=== PATIENT | male | born 1955 | race Caucasian/White ===

== ENCOUNTER 2017-11-22 12:17 | Inpatient (IN) | payer OTHER ==
[~2017-11-22] VITALS: Ht 165 cm; Wt 66.8 kg
--- NOTE | 2017-11-22 12:41 | ED DYSPNEA/ASTHMA COMPLAINT ---
See Addendum History of Present Illness General Chief Complaint: Dyspnea (COPD, CHF, Other) Stated Complaint: SOB Source: patient, family Exam Limitations: language barrier Vital Signs & Intake/Output Vital Signs & Intake/Output Vital Signs Date Time Temp Pulse Resp B/P B/P Pulse O2 O2 Flow FiO2 Mean Ox Delivery Rate 11/22 1446 98.0 102 20 147/90 95 Room Air 11/22 1420 98 11/22 1234 98.7 116 20 163/95 92 Room Air Allergies Coded Allergies: NO KNOWN ALLERGIES (11/25/11) Reconcile Medications Apixaban (Eliquis) 5 MG TABLET 1 TAB PO BID AFIB (Reported) Azithromycin 250 MG TABLET 1 DP PO AD INFECTION (Reported) 2 the first day followed by 1 for days 2-5 Benzonatate 100 MG CAPSULE 1 CAP PO TID PRN COUGH (Reported) Diltiazem HCl (Diltiazem 24HR ER) 180 MG CAP.ER.24H 1 CAP PO DAILY HTN ( Reported) Guaifenesin/Dextromethorphan (Coricidin Hbp Softgel) 200 MG-10 MG CAPSULE COUGH (Reported) Lisinopril 2.5 MG TABLET 1 TAB PO DAILY HTN (Reported) Metoprolol Tartrate (Lopressor) 50 MG TABLET 1 TAB PO BID HTN (Reported) Triage Note: PT C/O SOB AND WEAKNESS X 6 DAYS. WAS SEEN AT [facility] ON WEDNESDAY AND TREATED FOR FLU LIKE SYMPTOMS AND GIVEN ANTIBIOTIC. PT FEELING WORSE. Triage Nurses Notes Reviewed? 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 Harding (Saúl Zuniga) Past History Travel History Traveled to [place] past 21 day No Medical History Any Pertinent Medical History? see below for history Cardiovascular: hypertension, A-FIB Respiratory: COPD Surgical History Surgical History: non-contributory Psychosocial History Who do you live with Family Services at Home None What is your primary language Hebrew Tobacco Use: Never used ETOH Use: occasional use Illicit Drug Use: denies illicit drug use Family History Hx Contributory? No (Saúl Zuniga) Review of Systems Review of Systems Constitutional: Reports: no symptoms. EENTM: Reports: no symptoms. Respiratory: Reports: see HPI, cough, short of breath. Cardiovascular: Reports: see HPI, chest pain. GI: Reports: no symptoms. Genitourinary: Reports: no symptoms. Musculoskeletal: Reports: no symptoms. Skin: Reports: no symptoms. Neurological/Psychological: Reports: no symptoms. Hematologic/Endocrine: Reports: no symptoms. Immunologic/Allergic: Reports: no symptoms. All Other Systems: Reviewed and Negative (Saúl Zuniga) Physical Exam Physical Exam General Appearance: no apparent distress, alert, awake Head: atraumatic Eyes: Bilateral: normal appearance, PERRL, EOMI. Ears, Nose, Throat: normal pharynx, normal ENT inspection Neck: normal inspection Respiratory: no respiratory distress, quiet respiration, decreased breath sounds Cardiovascular: tachycardia, irregularly irregular Peripheral Pulses: 2+ radial (R) Gastrointestinal: normal bowel sounds, soft, non-tender Extremities: normal inspection, normal capillary refill, normal range of motion Neurologic/Psych: no motor/sensory deficits, awake, alert Skin: intact, normal color, warm/dry Core Measures ACS in differential dx? Yes CVA/TIA Diagnosis No Sepsis Present: No Sepsis Focused Exam Completed? No (Saúl Zuniga) Progress Differential Diagnosis: asthma, AMI, bronchitis, costochondritis, CHF, COPD, musculoskeletal pain, pericarditis, pulmonary embolism, pneumonia, pneumothorax, unstable angina Plan of Care: Orders Procedure Date/time Status Heart Healthy Diet 11/22 D Active Admit to inpatient 11/22 1539 Active Vital Signs 11/22 1539 Active Code Status 11/22 1539 Active Telemetry/Rotary Driller Helper 11/22 1306 Active LOWER RESPIRATORY CULTURE 11/22 1306 Active THYROID STIMULATING HORMONE 11/22 1306 Complete TROPONIN LEVEL 11/22 1306 Complete FREE T4 11/22 1306 Complete D-DIMER 11/22 1306 Complete COMPREHENSIVE METABOLIC PANEL 11/22 1306 Complete CBC WITHOUT DIFFERENTIAL 11/22 1306 Complete RAPID VIRAL INFLUENZA A 11/22 1249 Complete EKG 11/22 1218 Active Current Medications Sig/Marixa Start time Last Medication Dose Stop Time Status Admin Azithromycin 500 MG ONCE ONE 11/22 1500 AC (Zithromax) 11/22 1559 Dextrose/Water 250 ML (D5W) Sodium Chloride 500 ML BOLUS ONE 11/22 1500 AC (Normal Saline 0.9%) 11/22 1559 Laboratory Tests 11/22/17 1405: Anion Gap 19 H, Estimated GFR > 60, BUN/Creatinine Ratio 18.8, Glucose 135 H, Calcium 9.9, Total Bilirubin 0.8, AST 53, ALT 38, Alkaline Phosphatase 102, Troponin I < 0.01, Total Protein 8.8 H, Albumin 4.9, Globulin 3.9, Albumin/ Globulin Ratio 1.3, TSH 0.782, Free T4 1.69 11/22/17 1358: CBC w Diff NO MAN DIFF REQ, RBC 4.60 L, MCV 96.5 H, MCH 32.9 H, MCHC 34.1, RDW 12.4, MPV 8.9, Gran % 70.4, Lymphocytes % 10.6 L, Monocytes % 18.6 H, Eosinophils % 0.1, Basophils % 0.3, Absolute Granulocytes 4.5, Absolute Lymphocytes 0.7 L, Absolute Monocytes 1.2 H, Absolute Eosinophils 0, Absolute Basophils 0 11/22/17 1325: D-Dimer High Sensitivty < 200 Microbiology 11/22 1426 NASOPHARYN: Influenza Virus A & B Rapid Smear - COMP 11/22 1306 LOWER RESP: Respiratory Culture - ORD 11/22 1306 LOWER RESP: Gram Stain - ORD Patient on initial examination was resting comfortable at bedside no apparent distress however does have decreased breath sounds patient was administered nebulizer treatment with improvement of aeration and wheezing was more prevalent however upon ambulation down emergency room hallway patient desatted to 87% with mild respiratory distress, another breathing treatment will be ordered Discussed admission with family members and patient who are aware and agree have no questions Diagnostic Imaging: Viewed by Me: Radiology Read. Radiology Impression: SEE COMMENTS Initial ED EKG: AFIB (121 BPM) Comments: PATIENT: SIENA GARCIA PRESENT AGE: 62 PATIENT ACCOUNT NO: [id number] : 55 LOCATION: [facility] ORDERING PHYSICIAN: Saúl JOHNSON SERVICE DATE: 11/22/17 EXAM TYPE: RAD - XRY-CHEST XRAY, TWO VIEWS EXAMINATION: XR CHEST CLINICAL INFORMATION: Shortness of breath wheezing chest pain COMPARISON: Prior chest November 2011 TECHNIQUE: 2 views of the chest were obtained. FINDINGS: Lung volumes increased compatible with emphysema unchanged. Slight blunting of the right costophrenic angle compatible with pleural thickening or small pleural effusion increased compared to prior. The cardiac silhouette mediastinum pulmonary vascularity are normal. Spondylosis of the dorsal spine. IMPRESSION: Increased blunting of the right costophrenic angle age indeterminant this may simple reflect chronic pleural thickening versus small effusion increased compared to prior DICTATED BY: Koffi Mitchell MD DATE/TIME DICTATED:11/22/171457 CLINICAL PROGRAM DIRECTOR:ARIANNE DATE/TIME TRANSCRIBED:11/22/171457 (Saúl Zuniga) Departure Departure Disposition: STILL A PATIENT Condition: Stable Clinical Impression Primary Impression: COPD exacerbation Secondary Impressions: Bronchitis Referrals: Zia Carrasco MD (PCP/Family) Departure Forms: Customer Survey General Discharge Information Admission Note Spoke With: Zia Carrasco MD Documentation of Exam: Documentation of any treatments & extenuating circumstances including Concerns Regarding Discharge (functional status, medication knowledge or non-compliance, living conditions, etc.) that warrant an admission rather than observation: [ Patient requires repeat nebulizers IV steroids pulmonary consultation repeat cardiac enzymes patient has failed outpatient treatments of nebulizers azithromycin and antitussives] (Saúl Zuniga) PA/CORRECTIONAL CASE MANAGER Co-Sign Statement Statement: ED Attending supervision documentation- [X] I saw and evaluated the patient. I have also reviewed all the pertinent lab results and diagnostic results. I agree with the findings and the plan of care as documented in the PA's/CORRECTIONAL CASE MANAGER's documentation. [] I have reviewed the ED Record and agree with the PA's/CORRECTIONAL CASE MANAGER's documentation. [] Additions or exceptions (if any) to the PAs/CORRECTIONAL CASE MANAGER's note and plan are summarized below: [] (Cory Lee DO) Critical Care Note Critical Care Note Critical Care Time: 30-74 min (Saúl Zuniga)
[2017-11-22] MEDS ORDERED: DILTIAZEM 24HR180 MG PO (13:08)
[2017-11-22] MEDS ORDERED: ELIQUIS5 M1 PO (13:08)
[2017-11-22] MEDS ORDERED: LOPRESSOR50 M1 PO (13:09)
[2017-11-22] MEDS ORDERED: BENZONATATE100 M1 PO (13:09)
[2017-11-22] MEDS ORDERED: CORICIDIN HBP1 EAC1 (13:10)
[2017-11-22] MEDS ORDERED: AZITHROMYCIN250 M1 PO (13:10)
[2017-11-22] MEDS ORDERED: LISINOPRIL2.5 M1 PO (13:10)
[2017-11-22 13:57] LABS: ABSOLUTE BASOPHIL COUNT 0 /CUMM (0.0-0.2); ABSOLUTE EOSINOPHIL COUNT 0 /CUMM (0.0-0.7); ABSOLUTE GRANULOCYTE CT 4.5 /CUMM (1.4-6.5); ABSOLUTE LYMPH COUNT 0.7 /CUMM (1.2-3.4); ABSOLUTE MONOCYTE COUNT 1.2 /CUMM (0.10-0.60); BASOPHIL % 0.3 % (0.0-2.0); EOSINOPHIL % 0.1 % (0-5); GRANULOCYTE % 70.4 % (42.2-75.2); HEMATOCRIT 44.4 % (42-52); MEAN CORPUSCULAR HGB 32.9 PG (27.0-31.0); MEAN CORPUSCULAR HGB CONC 34.1 G/DL (33.0-37.0); MEAN CORPUSCULAR VOLUME 96.5 FL (80.0-94.0); MEAN PLATELET VOLUME 8.9 FL (7.4-10.4); PLATELET COUNT 195 /CUMM (130-400); RBC DISTRIBUTION WIDTH 12.4 % (11.5-14.5); WHITE BLOOD CELL COUNT 6.3 /CUMM (4.8-10.8)
--- NOTE | 2017-11-22 15:04 | RADIOLOGY REPORT ---
EXAMINATION: XR CHEST CLINICAL INFORMATION: Shortness of breath wheezing chest pain COMPARISON: Prior chest November 2011 TECHNIQUE: 2 views of the chest were obtained. FINDINGS: Lung volumes increased compatible with emphysema unchanged. Slight blunting of the right costophrenic angle compatible with pleural thickening or small pleural effusion increased compared to prior. The cardiac silhouette mediastinum pulmonary vascularity are normal. Spondylosis of the dorsal spine. IMPRESSION: Increased blunting of the right costophrenic angle age indeterminant this may simple reflect chronic pleural thickening versus small effusion increased compared to prior
--- NOTE | 2017-11-22 15:51 | History & Physical ---
Xiao PLASENCIA,Josey 11/22/17 1551: General Information and HPI MD Statement: I have seen and personally examined SIENA GARCIA and documented this H&P. The patient is a 62 year old M who presented with a patient stated chief complaint of [SOB, cough]. Source of Information: patient, old records History of Present Illness: 62-year-old Slovenian speaking male with past medical history of COPD not on home oxygen, A. fib on Eliquis, hypertension presents to [facility] ED for complaints of one week of productive cough with yellowish sputum, exertional shortness of breath, orthopnea. Patient went to a walk-in clinic and he was prescribed inhalers and azithromycin which she only got 2 doses and he reports not improving on these meds. He also reports 2 episodes of loose diarrhea. Patient denies any fever, chills, chest pain, nausea, vomiting. Patient has recent sick contact (his who has caused but was tested negative for the flu as well as the patient) patient denies any other recent sick contacts or travel Patient follow-up with Dr. Harding as outpatient and his last echo was in July Patient denies any recent changes to his medication and reported being compliant with his home meds Allergies/Medications Allergies: Coded Allergies: NO KNOWN ALLERGIES (11/25/11) Home Med list Apixaban (Eliquis) 5 MG TABLET 1 TAB PO BID AFIB (Reported) Azithromycin 250 MG TABLET 1 DP PO AD INFECTION (Reported) 2 the first day followed by 1 for days 2-5 Benzonatate 100 MG CAPSULE 1 CAP PO TID PRN COUGH (Reported) Diltiazem HCl (Diltiazem 24HR ER) 180 MG CAP.ER.24H 1 CAP PO DAILY HTN ( Reported) Guaifenesin/Dextromethorphan (Coricidin Hbp Softgel) 200 MG-10 MG CAPSULE COUGH (Reported) Lisinopril 2.5 MG TABLET 1 TAB PO DAILY HTN (Reported) Metoprolol Tartrate (Lopressor) 50 MG TABLET 1 TAB PO BID HTN (Reported) Past History Travel History Traveled to [place] past 21 day No Medical History Cardiovascular: hypertension, A-FIB Respiratory: COPD Surgical History Surgical History: non-contributory Past Family/Social History Psychosocial History Services at Home: None ETOH Use: occasional use Illicit Drug Use: denies illicit drug use Review of Systems Review of Systems Constitutional: Reports: malaise, weakness. Denies: chills, diaphoresis, fever. Cardiovascular: Reports: orthopena. Denies: chest pain, edema, peripheral edema. Respiratory: Reports: cough, short of breath, sputum production. GI: Reports: diarrhea. Genitourinary: Denies: no symptoms. Musculoskeletal: Denies: no symptoms. Skin: Denies: no symptoms. Neurological/Psychological: Denies: no symptoms. Exam & Diagnostic Data Last 24 Hrs of Vital Signs/I&O Vital Signs Date Time Temp Pulse Resp B/P B/P Pulse O2 O2 Flow FiO2 Mean Ox Delivery Rate 11/22 1957 98.8 100 20 124/80 95 Room Air 11/22 1923 98.6 90 20 134/84 94 Room Air 11/22 1644 98.5 112 19 142/88 95 Room Air 11/22 1600 98.5 112 20 142/88 95 Room Air 11/22 1446 98.0 102 20 147/90 95 Room Air 11/22 1420 98 11/22 1234 98.7 116 20 163/95 92 Room Air Intake & Output 11/22 1600 11/22 0800 11/22 0000 Intake Total 0 Output Total Balance 0 Intake, Oral 0 Patient 160 lb Weight Weight Reported by Patient Measurement Method Physical Exam General Appearance Alert, Oriented X3, Cooperative, No Acute Distress Skin No Rashes, No Breakdown, No Significant Lesion HEENT Atraumatic, PERRLA, EOMI, Mucous Membr. moist/pink Neck Supple, No JVD Cardiovascular Normal S1, Normal S2 Lungs Clear to Auscultation, Normal Air Movement Abdomen Normal Bowel Sounds, Soft, No Tenderness Neurological Normal Speech Extremities No Clubbing, No Cyanosis, No Edema Vascular Normal Pulses Assessment/Plan Assessment: 62-year-old Slovenian speaking male with past medical history of COPD not on home oxygen, A. fib on Eliquis, hypertension presents to [facility] ED for complaints of one week of productive cough with yellowish sputum, exertional shortness of breath, orthopnea. Patient went to a walk-in clinic and he was prescribed inhalers and azithromycin which she only got 2 doses and he reports not improving on these meds. Last echo performed on the 13 10 showed ejection fraction of 25% which make his symptoms either due to COPD exacerbation versus CHF exacerbation however the patient doesn't have any signs of fluid overload and his BNP was not markedly elevated Labs on admission: WBC 6.3, RBCs 4.6, hemoglobin 15.1, platelet 195, d-dimer < 200, sodium 141, potassium 4.5, carbon dioxide 27, BUN 15, creatinine 0.8, glucose 135, AST 53, AST 38, X-ray:Increased blunting of the right costophrenic angle age indeterminant this may simple reflect chronic pleural thickening versus small effusion increased compared to prior EKG: A. fib, heart rate 120,QTC: Last echocardiography: 2011 showed ejection fraction is less than 25% #COPD exacerbation We'll admit to the GEN med floor IV Solu-Medrol 40 every 8 hours TRC/nebs Oxygen was goal oxygen saturation above 92 Mucinex IV azithromycin #History of A. fib/ heart failure with reduced ejection fraction/hypertension We'll obtain cardiology consult Echocardiogram Follow-up on EKG and troponin to rule out ACS Continue home meds including metoprolol, diltiazem, Eliquis, lisinopril Patient is full code DVT prophylaxis with Eliquis Heart healthy diet Core Measures/Misc (07/11) Acute Coronary Syndrome ACS Diagnosis: No Congestive Heart Failure Congestive Heart Failure Diagnosis No Last Known EF % 25 Cerebrovascular Accident CVA/TIA Diagnosis: No VTE (View Protocol) VTE Risk Factors Age>40 No Mechanical VTE Prophylaxis d/t N/A MechProphylax Ordered No VTE Pharm Prophylaxis d/t NA PharmProphylax ordered Sepsis (View protocol) Sepsis Present: No Blu Bergman 11/22/171947: Assessment/Plan As Ranked By This Provider Problem List: 1. COPD exacerbation Resident Review Statement Resident Statement: examined this patient, discussed with dietetic intern, agreed with dietetic intern, discussed with family, reviewed EMR data (avail), discussed with nursing , discussed with case mgmt, reviewed images, amended to note Other Findings: Patient is a 62-year-old male with medical history of COPD NOT ON HOME O2 and atrial fibrillation ON eliquis, HTN. She presented to the emergency department with one-week history of productive cough and shortness of breath. His daughter stated that he was given a prescription one week ago of azithromycin and Tessalon Perles, inhaler with no relief of symptoms, patient stated he take only 1 doses of his azithromycin. Patient is still complaining of white productive cough shortness of breath dyspnea on exertion. Also he reports some orthopnea, he stated that he increase the number of pill use from 1-2 due to the difficulty of breathing. 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 Patient denies any lower extremity swelling. In ED patient received IV Solu-Medrol, IV azithromycin and nbs. Patient reports his shortness of breathing improve, and he is currently on room air with easy saturation more than 92%. His pro-B peptide of 900. Problem list: -COPD exacerbation -Questionable CHF decompensation -Atrial fibrillation on a Eliquis Plan: -Admit patient to medicine floor -Vitals every shift -IV Solu-Medrol 40 mg every 8 -IV azithromycin -Start the patient on Symbicort, continue albuterol inhaler -TRC nebs as needed, Mucinex twice -Sputum culture, Legionella strep urine antigen -1 set for troponin and EKG -Obtain echocardiogram for further assessment, cardiac consultation in a.m. -Accu-Chek -Continue his home medication -Heart healthy diet -Pain pathway -DVT prophylaxis on Eliquis -Full code
[2017-11-22 16:00] VITALS: BP 142/88
--- NOTE | 2017-11-22 19:20 | Admission Certification ---
Admission Certification Certification Statement - As attending physician, I certify that at the time of - admission, based on clinical presentation, severity of - symptoms, need for further diagnostic testing and - therapeutic interventions, and risk of adverse outcomes - without in-hospital treatment, in my clinical assessment, - this patient requires an acute hospital stay for a minimum - of two nights or longer. I have also considered psychsocial - factors such as support system, advanced age, financial - issues, cognitive issues, and failed out-patient treatments, - past re-admission history, safety of patient, and lack of - compliance as applicable. Specific rationale supporting this admission is: Exacerbation of COPD not responding to treatment given in the clinic
[2017-11-22 19:23] VITALS: BP 134/84
--- NOTE | 2017-11-22 19:26 | PN- Att Addend ---
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 having SOB and wheezes for several days went to clinic wednesday given a Zpak and Tessalon pearls not better comes to the Er will stay treat as exacerbation, have Dr Harding check for orthopnea and small pleural effussion. Laboratory Tests 11/22/17 1556: Lad-Q-Arqptjeovpx Pept Cancelled 11/22/17 1405: Anion Gap 19 H, Estimated GFR > 60, BUN/Creatinine Ratio 18.8, Glucose 135 H, Calcium 9.9, Total Bilirubin 0.8, AST 53, ALT 38, Alkaline Phosphatase 102, Troponin I < 0.01, Bph-Q-Yprkmlrgnew Pept 923 H, Total Protein 8.8 H, Albumin 4.9, Globulin 3.9, Albumin/Globulin Ratio 1.3, TSH 0.782, Free T4 1.69 11/22/17 1358: CBC w Diff NO MAN DIFF REQ, RBC 4.60 L, MCV 96.5 H, MCH 32.9 H, MCHC 34.1, RDW 12.4, MPV 8.9, Gran % 70.4, Lymphocytes % 10.6 L, Monocytes % 18.6 H, Eosinophils % 0.1, Basophils % 0.3, Absolute Granulocytes 4.5, Absolute Lymphocytes 0.7 L, Absolute Monocytes 1.2 H, Absolute Eosinophils 0, Absolute Basophils 0 11/22/17 1325: D-Dimer High Sensitivty < 200 Microbiology 11/22 1426 NASOPHARYN: Influenza Virus A & B Rapid Smear - COMP Vital Signs Date Time Temp Pulse Resp B/P B/P Pulse O2 O2 Flow FiO2 Mean Ox Delivery Rate 11/22 1923 98.6 90 20 134/84 94 Room Air 11/22 1644 98.5 112 19 142/88 95 Room Air 11/22 1600 98.5 112 20 142/88 95 Room Air 11/22 1446 98.0 102 20 147/90 95 Room Air 11/22 1420 98 11/22 1234 98.7 116 20 163/95 92 Room Air
[2017-11-22 19:58] VITALS: BP 124/80
[2017-11-23] VITALS: BP 120/76
[2017-11-23 06:51] VITALS: BP 127/90
--- NOTE | 2017-11-23 09:49 | PN- Att Addend ---
Attending Addendum Attending Brief Note Patient in bed still having shortness of breath with minimal exertion stated after he came back from the bathroom is very short of breath His vital signs are stable has no fever, no major changes on physical area to continue present treatments 24 TOTALS 11/23 0000 11/22 0000 Intake Total 600 Output Total Balance 600 Intake, Oral 600 Patient 147 lb Weight Weight Bed scale Measurement Method Current Medications Sig/Marixa Start time Last Medication Dose Route Stop Time Status Admin Acetaminophen 650 MG Q6P PRN 11/22 1715 AC PO Albuterol Sulfate 3 ML BID 11/22 2200 AC 11/22 INH 2115 Albuterol Sulfate 3 ML ONCE ONE 11/22 1430 DC 11/22 INH 11/22 1431 1458 Albuterol Sulfate 3 ML ONCE ONE 11/22 1430 DC 11/22 INH 11/22 1431 1458 Albuterol Sulfate 3 ML ONCE ONE 11/22 1315 DC 11/22 INH 11/22 1316 1328 Apixaban 5 MG BID 11/22 2200 AC 11/23 PO 0919 Azithromycin 500 MG DAILY 11/23 1000 AC Dextrose/Water 250 ML IV Azithromycin 500 MG ONCE ONE 11/22 1500 DC 11/22 Dextrose/Water 250 ML IV 11/22 1559 1548 Benzonatate 100 MG TID 11/22 1709 AC 11/23 PO 0919 Budesonide/ 2 PUF BID 11/22 2199 AC 11/23 Formoterol Fumarate INH 0920 Diltiazem HCl 180 MG DAILY 11/23 1000 AC 11/23 PO 0919 Guaifenesin 600 MG Q12 11/22 2200 AC 11/23 PO 0919 Guaifenesin 600 MG ONCE ONE 11/22 1315 DC 11/22 PO 11/22 1316 1547 Hydrocodone Bitart/ 1 TAB Q6P PRN 11/22 1715 AC Acetaminophen PO Ipratropium [place] 2.5 ML ONCE ONE 11/22 1315 DC 11/22 INH 11/22 1316 1328 Lisinopril 2.5 MG DAILY 11/23 1000 AC 11/23 PO 0919 Methylprednisolone 40 MG Q8 11/22 2200 AC 11/23 IV 0606 Methylprednisolone 0 .STK-MED ONE 11/22 1539 DC .ROUTE Methylprednisolone 125 MG ONCE ONE 11/22 1315 DC 11/22 IV 11/22 1316 1547 Metoprolol Tartrate 50 MG BID 11/22 2199 AC 11/23 PO 0919 Oxycodone HCl 5 MG Q6P PRN 11/22 1715 AC PO Sodium Chloride 500 ML BOLUS ONE 11/22 1500 DC 11/22 IV 11/22 1559 1548 Laboratory Tests 11/22/17 2150: Troponin I < 0.01 11/22/17 1556: Zgk-H-Ysxswwlzxnd Pept Cancelled 11/22/17 1405: Anion Gap 19 H, Estimated GFR > 60, BUN/Creatinine Ratio 18.8, Glucose 135 H, Calcium 9.9, Total Bilirubin 0.8, AST 53, ALT 38, Alkaline Phosphatase 102, Troponin I < 0.01, Ijx-K-Wilkeevexpw Pept 923 H, Total Protein 8.8 H, Albumin 4.9, Globulin 3.9, Albumin/Globulin Ratio 1.3, TSH 0.782, Free T4 1.69 11/22/17 1358: CBC w Diff NO MAN DIFF REQ, RBC 4.60 L, MCV 96.5 H, MCH 32.9 H, MCHC 34.1, RDW 12.4, MPV 8.9, Gran % 70.4, Lymphocytes % 10.6 L, Monocytes % 18.6 H, Eosinophils % 0.1, Basophils % 0.3, Absolute Granulocytes 4.5, Absolute Lymphocytes 0.7 L, Absolute Monocytes 1.2 H, Absolute Eosinophils 0, Absolute Basophils 0 11/22/17 1325: D-Dimer High Sensitivty < 200 Microbiology 11/230 URINE ROUT: Legionella Antigen - COMP 11/23 409 URINE ROUT: Streptococcus pneumoniae Antigen (M - COMP 11/22 1426 NASOPHARYN: Influenza Virus A & B Rapid Smear - COMP Vital Signs Date Time Temp Pulse Resp B/P B/P Pulse O2 O2 Flow FiO2 Mean Ox Delivery Rate 11/23 09 98.2 98 20 127/90 11/23 0919 98.2 98 20 127/90 11/23 0800 Nasal 1.0L Cannula 11/23 0651 98.2 98 20 127/90 91 Nasal 1.0L Cannula 11/23 0000 93 Nasal 1.0L Cannula 11/23 0000 97.9 80 20 120/76 93 Nasal 1.0L Cannula 11/22 2202 100 20 124/80 11/22 2125 Room Air 11/22 1957 98.8 100 20 124/80 95 Room Air 11/22 1923 98.6 90 20 134/84 94 Room Air 11/22 1644 98.5 112 19 142/88 95 Room Air 11/22 1600 98.5 112 20 142/88 95 Room Air 11/22 1446 98.0 102 20 147/90 95 Room Air 11/22 1420 98 11/22 1234 98.7 116 20 163/95 92 Room Air
--- NOTE | 2017-11-23 11:09 | PN- Housestaff ---
Subjective Follow-up For: Dyspnea COPD Subjective: nonproductive cough and exertional dyspnea Review of Systems Constitutional: Reports: see HPI. Objective Last 24 Hrs of Vital Signs/I&O Vital Signs Date Time Temp Pulse Resp B/P B/P Pulse O2 O2 Flow FiO2 Mean Ox Delivery Rate 11/23 1334 93 Nasal 1.0L Cannula 11/23 0919 98.2 98 20 127/90 11/23 0919 98.2 98 20 127/90 11/23 0800 Nasal 1.0L Cannula 11/23 0651 98.2 98 20 127/90 91 Nasal 1.0L Cannula 11/23 0000 93 Nasal 1.0L Cannula 11/23 0000 97.9 80 20 120/76 93 Nasal 1.0L Cannula 11/22 2203 100 20 124/80 11/22 2126 Room Air 11/22 1958 98.8 100 20 124/80 95 Room Air 11/22 1923 98.6 90 20 134/84 94 Room Air 11/22 1644 98.5 112 19 142/88 95 Room Air 11/22 1600 98.5 112 20 142/88 95 Room Air 11/22 1446 98.0 102 20 147/90 95 Room Air 11/22 1420 98 Intake & Output 11/23 1600 11/23 0800 11/23 0000 Intake Total 600 600 Output Total 550 Balance 50 600 Intake, Oral 600 600 Output, Urine 550 Patient 66.763 kg Weight Weight Bed scale Measurement Method Physical Exam General Appearance: Alert, Oriented X3, Cooperative, No Acute Distress Cardiovascular: irregular Lungs: diminished bibasilar Abdomen: Normal Bowel Sounds, Soft, No Tenderness, No Masses Extremities: No Clubbing, No Cyanosis, No Edema, Normal Pulses Assessment/Plan Assessment: 62 year old [place] speaking male with PMH of COPD not on home oxygen, atrial fibrillation on Eliquis, HTN presents with productive cough and exertional dyspnea. Exertional dyspnea secondary to CHF vs COPD exacerbation althought no overt signs of fluid overload and his BNP was not markedly elevated COPD exacerbation: Former smoker IV azithromycin Continue solumedrol 40mg IV q8h TRC evaluation and nebulized albuterol Titrate supplemental oxygen to an SpO2 > 92% Mucinex and tessalon pearles for cough and congestion X-ray: Increased blunting of the right costophrenic angle age chronic pleural thickening versus small effusion HFrEF: Repeat echocardiogram Cardiology consultation LVEF 25% on last echocardiogram 2012 Check EKG/troponins to rule out myocardial ischemia as cause of dyspnea Atrial fibrillation: Continue anticoagulation with eliquis Continue rate control with metoprolol and cardizem HTN: Continue metoprolol, cardizem, lisinopril Heart healthy diet DVT ppx: on Eliquis Full code Problem List: 1. ATRIAL FIBRILATION 2. COPD exacerbation 3. Bronchitis Pain Ratin Pain Location: n/a Pain Goal: Pain 4 or less Pain Plan: prn Tomorrow's Labs & Rationales: cbc, bep
[2017-11-23 14:23] VITALS: BP 120/60
[2017-11-23 20:05] LABS: ABSOLUTE BASOPHIL COUNT 0 /CUMM (0.0-0.2); ABSOLUTE EOSINOPHIL COUNT 0 /CUMM (0.0-0.7); ABSOLUTE GRANULOCYTE CT 15.2 /CUMM (1.4-6.5); ABSOLUTE LYMPH COUNT 0.6 /CUMM (1.2-3.4); ABSOLUTE MONOCYTE COUNT 0.9 /CUMM (0.10-0.60); BASOPHIL % 0 % (0.0-2.0); EOSINOPHIL % 0 % (0-5); HEMATOCRIT 46.9 % (42-52); MEAN CORPUSCULAR HGB 32.9 PG (27.0-31.0); MEAN CORPUSCULAR HGB CONC 33.2 G/DL (33.0-37.0); MEAN CORPUSCULAR VOLUME 99.3 FL (80.0-94.0); MEAN PLATELET VOLUME 9.7 FL (7.4-10.4); PLATELET COUNT 226 /CUMM (130-400); RBC DISTRIBUTION WIDTH 12.9 % (11.5-14.5); RED BLOOD CELL CT 4.72 /CUMM (4.70-6.10)
[2017-11-23 20:10] LABS: WHITE BLOOD CELL COUNT 16.7 /CUMM (4.8-10.8)
[2017-11-23 20:23] LABS: GRANULOCYTE % 90.7 % (42.2-75.2)
[2017-11-23 22:56] VITALS: BP 142/70
[2017-11-24 06:57] VITALS: BP 122/90
--- NOTE | 2017-11-24 07:10 | PN- Housestaff ---
Subjective Follow-up For: exertional dyspnea cough bronchitis COPD exacerbation Subjective: less chest tightness and dyspnea is relatively improved was able to walk to the bathroom this morning without significant dyspnea Review of Systems Constitutional: Reports: see HPI. Objective Last 24 Hrs of Vital Signs/I&O Vital Signs Date Time Temp Pulse Resp B/P B/P Pulse O2 O2 Flow FiO2 Mean Ox Delivery Rate 11/24 0919 94 Room Air Room Air 11/24 0735 97.5 80 20 122/90 11/24 0734 97.5 80 20 122/90 11/24 0657 97.5 80 20 122/90 91 Room Air 11/24 0000 Nasal 1.0L Cannula 11/23 2256 98.3 80 20 142/70 91 Nasal Cannula 11/23 2139 98.1 70 120/60 11/23 1953 Nasal 1.0L Cannula 11/23 1423 98.1 70 20 120/60 98 Room Air 11/23 1334 93 Nasal 1.0L Cannula Physical Exam General Appearance: Alert, Oriented X3, Cooperative, No Acute Distress Cardiovascular: Regular Rate, Normal S1, Normal S2, No Murmurs Lungs: significantly reduced air movement globally Abdomen: Normal Bowel Sounds, Soft, No Tenderness, No Masses Extremities: No Clubbing, No Cyanosis, No Edema, Normal Pulses Current Medications: Current Medications Sig/Marixa Start time Last Medication Dose Route Stop Time Status Admin Acetaminophen 650 MG Q6P PRN 11/22 1715 AC PO Albuterol Sulfate 3 ML BID 11/220 AC 11/24 INH 0917 Apixaban 5 MG BID 11/22 2200 AC 11/24 PO 0735 Azithromycin 500 MG DAILY 11/25 1000 AC PO Azithromycin 500 MG DAILY 11/24 1000 DC 11/24 Sodium Chloride 250 ML IV 0734 Azithromycin 500 MG DAILY 11/23 1000 DC 11/23 Dextrose/Water 250 ML IV 1200 Benzonatate 100 MG TID 11/22 1709 AC 11/24 PO 0735 Budesonide/ 2 PUF BID 11/22 2200 AC 11/24 Formoterol Fumarate INH 0734 Diltiazem HCl 180 MG DAILY 11/23 1000 AC 11/24 PO 0734 Guaifenesin 600 MG Q12 11/22 2200 AC 11/24 PO 0735 Hydrocodone Bitart/ 1 TAB Q6P PRN 11/22 1715 AC Acetaminophen PO Lisinopril 2.5 MG DAILY 11/23 1000 AC 11/24 PO 0735 Methylprednisolone 40 MG Q12 11/24 2199 AC IV 11/24 2300 Methylprednisolone 40 MG Q8 11/22 2199 DC 11/24 IV 0521 Metoprolol Tartrate 50 MG BID 11/22 2199 AC 11/24 PO 0734 Oxycodone HCl 5 MG Q6P PRN 11/22 1715 AC PO Prednisone 50 MG DAILY 11/25 1000 AC PO Last 24 Hrs of Lab/Chan Results Last 24 Hrs of Labs/Mics: Laboratory Tests 11/23/17 1855: Anion Gap 20 H, Estimated GFR > 60, BUN/Creatinine Ratio 16.3, CBC w Diff NO MAN DIFF REQ, RBC 4.72, MCV 99.3 H, MCH 32.9 H, MCHC 33.2, RDW 12.9, MPV 9.7, Gran % 90.7 H, Lymphocytes % 3.7 L, Monocytes % 5.6, Eosinophils % 0, Basophils % 0, Absolute Granulocytes 15.2 H, Absolute Lymphocytes 0.6 L, Absolute Monocytes 0.9 H, Absolute Eosinophils 0, Absolute Basophils 0 Assessment/Plan Assessment: 62 year old Kitt[place] speaking male with PMH of COPD not on home oxygen, atrial fibrillation on Eliquis, HTN presents with productive cough and exertional dyspnea. Exertional dyspnea secondary to CHF vs COPD exacerbation althought no overt signs of fluid overload and his BNP was not markedly elevated COPD exacerbation: Former smoker IV azithromycin, plan to change to PO tomorrow Continue solumedrol 40mg IV q12h, convert to PO prednisone tomorrow TRC evaluation and nebulized albuterol Titrate off supplemental oxygen, maintain an SpO2 > 92% Mucinex and tessalon pearles for cough and congestion X-ray: Increased blunting of the right costophrenic angle age chronic pleural thickening versus small effusion HFrEF: Repeat echocardiogram Cardiology consultation LVEF 25% on last echocardiogram 2012 Troponins negative for myocardial ischemia as cause of dyspnea Atrial fibrillation: Continue anticoagulation with eliquis Continue rate control with metoprolol and cardizem HTN: Continue metoprolol, cardizem, lisinopril Heart healthy diet DVT ppx: on Eliquis Full code Problem List: 1. ATRIAL FIBRILATION 2. COPD exacerbation 3. Bronchitis Pain Ratin Pain Location: n/a Pain Goal: Pain 4 or less Pain Plan: prn Tomorrow's Labs & Rationales: none
--- NOTE | 2017-11-24 09:48 | PN- Att Addend ---
Attending Addendum Attending Brief Note Patient looking and feeling better today, breathing is improved and was able to go to the bathroom with no distress. Vital signs are stable no fever his O2 saturations are acceptable. His air entry is a little improved will continue with the tapering steroids, switched to by mouth antibiotics, and if stable may be able to go home tomorrow. Intake & Output 11/24 1600 11/24 0400 11/23 1600 11/23 0400 11/22 1600 11/22 0400 Intake Total 1400 600 0 Output Total 950 Balance 450 600 0 Intake, Oral 1400 600 0 Output, Urine 950 Patient 147 lb 160 lb Weight Weight Bed scale Reported by Patient Measurement Method Current Medications Sig/Marixa Start time Last Medication Dose Route Stop Time Status Admin Acetaminophen 650 MG Q6P PRN 11/22 171 AC PO Albuterol Sulfate 3 ML BID 11/22 2199 AC 11/24 INH 0917 Apixaban 5 MG BID 11/22 220 AC 11/24 PO 0735 Azithromycin 500 MG DAILY 11/25 1000 AC PO Azithromycin 500 MG DAILY 11/24 1000 DC 11/24 Sodium Chloride 250 ML IV 0734 Azithromycin 500 MG DAILY 11/23 1000 DC 11/23 Dextrose/Water 250 ML IV 1200 Benzonatate 100 MG TID 11/22 1709 AC 11/24 PO 0735 Budesonide/ 2 PUF BID 11/22 220 AC 11/24 Formoterol Fumarate INH 0734 Diltiazem HCl 180 MG DAILY 11/23 1000 AC 11/24 PO 0734 Guaifenesin 600 MG Q12 11/22 2200 AC 11/24 PO 0735 Hydrocodone Bitart/ 1 TAB Q6P PRN 11/22 171 AC Acetaminophen PO Lisinopril 2.5 MG DAILY 11/23 1000 AC 11/24 PO 0735 Methylprednisolone 40 MG Q12 11/24 2199 AC IV 11/24 2300 Methylprednisolone 40 MG Q8 11/22 220 DC 11/24 IV 0521 Metoprolol Tartrate 50 MG BID 11/22 220 AC 11/24 PO 0734 Oxycodone HCl 5 MG Q6P PRN 11/22 1715 AC PO Prednisone 50 MG DAILY 11/25 1000 AC PO Laboratory Tests 11/23/17 1855: Anion Gap 20 H, Estimated GFR > 60, BUN/Creatinine Ratio 16.3, CBC w Diff NO MAN DIFF REQ, RBC 4.72, MCV 99.3 H, MCH 32.9 H, MCHC 33.2, RDW 12.9, MPV 9.7, Gran % 90.7 H, Lymphocytes % 3.7 L, Monocytes % 5.6, Eosinophils % 0, Basophils % 0, Absolute Granulocytes 15.2 H, Absolute Lymphocytes 0.6 L, Absolute Monocytes 0.9 H, Absolute Eosinophils 0, Absolute Basophils 0 11/22/17 2150: Troponin I < 0.01 11/22/17 1556: [id number]-[id number] Pept Cancelled 11/22/17 1405: Anion Gap 19 H, Estimated GFR > 60, BUN/Creatinine Ratio 18.8, Glucose 135 H, Calcium 9.9, Total Bilirubin 0.8, AST 53, ALT 38, Alkaline Phosphatase 102, Troponin I < 0.01, Xja-T-Fvdljicnmfc Pept 923 H, Total Protein 8.8 H, Albumin 4.9, Globulin 3.9, Albumin/Globulin Ratio 1.3, TSH 0.782, Free T4 1.69 11/22/17 1358: CBC w Diff NO MAN DIFF REQ, RBC 4.60 L, MCV 96.5 H, MCH 32.9 H, MCHC 34.1, RDW 12.4, MPV 8.9, Gran % 70.4, Lymphocytes % 10.6 L, Monocytes % 18.6 H, Eosinophils % 0.1, Basophils % 0.3, Absolute Granulocytes 4.5, Absolute Lymphocytes 0.7 L, Absolute Monocytes 1.2 H, Absolute Eosinophils 0, Absolute Basophils 0 11/22/17 1325: D-Dimer High Sensitivty < 200 Microbiology 11/23 409 URINE ROUT: Legionella Antigen - COMP 11/23 409 URINE ROUT: Streptococcus pneumoniae Antigen (M - COMP 11/22 142 NASOPHARYN: Influenza Virus A & B Rapid Smear - COMP 11/22 1306 LOWER RESP: Respiratory Culture - CAN Cancelled: SPECIMEN NOT RECEIVED IN LABORATORY 11/22 130 LOWER RESP: Gram Stain - CAN Cancelled: SPECIMEN NOT RECEIVED IN LABORATORY Microbiology 11/23 409 URINE ROUT: Legionella Antigen - COMP 11/23 409 URINE ROUT: Streptococcus pneumoniae Antigen (M - COMP 11/22 1426 NASOPHARYN: Influenza Virus A & B Rapid Smear - COMP 11/22 1306 LOWER RESP: Respiratory Culture - CAN Cancelled: SPECIMEN NOT RECEIVED IN LABORATORY 11/22 1306 LOWER RESP: Gram Stain - CAN Cancelled: SPECIMEN NOT RECEIVED IN LABORATORY Vital Signs Date Time Temp Pulse Resp B/P B/P Pulse O2 O2 Flow FiO2 Mean Ox Delivery Rate 11/24 0919 94 Room Air Room Air 11/24 0735 97.5 80 20 122/90 11/24 0734 97.5 80 20 122/90 11/24 0657 97.5 80 20 122/90 91 Room Air 11/24 0000 Nasal 1.0L Cannula 11/23 2256 98.3 80 20 142/70 91 Nasal Cannula 11/23 2139 98.1 70 120/60 11/23 1953 Nasal 1.0L Cannula 11/23 1423 98.1 70 20 120/60 98 Room Air 11/23 1334 93 Nasal 1.0L Cannula
--- NOTE | 2017-11-24 10:14 | Cons- Cardiology ---
General Information and HPI Consulting Request Date of Consult: 11/24/17 Requested By: Zia Carrasco MD Reason for Consult: Atrial fibrillation with a rapid ventricular response. Source of Information: patient, old records Exam Limitations: language barrier History of Present Illness: Mr. Juan Antonio Reilly is a 62-year-old male of [place] descent with a long-standing history of tobacco use (discontinued ~2009), COPD, hypertension, nonischemic cardiomyopathy with systolic heart failure, and atrial fibrillation on the factor Xa inhibitor Eliquis (apixaban) for anticoagulation and beta blockers/non-dihydropyridine calcium channel antagonist therapy for rate control who presented to the ED on Wednesday (11/22/2017) with a one-week history of cough productive of yellowish sputum, exertional shortness of breath, orthopnea, diarrhea, and fatigue despite outpatient antimicrobial therapy (azithromycin), inhalers, etc. prescribed by a walk-in clinic. His last echocardiogram was performed on 07/28/2016 and revealed a normal-sized left ventricle with borderline concentric left ventricular hypertrophy and moderately reduced systolic function with EF 35-40%, moderately dilated right ventricle, moderately dilated right and markedly dilated left atria, no pericardial effusion, mild aortic root dilatation (3.8 cm) and Doppler portion that revealed trace aortic, moderate mitral, trace tricuspid regurgitation and an estimated RV systolic pressure of 34 mmHg. His last stress test was performed on 11/27/2011 and revealed no clinical, electrocardiographic, or nuclear evidence of ischemia. Allergies/Medications Allergies: Coded Allergies: NO KNOWN ALLERGIES (11/25/11) Home Med List: Apixaban (Eliquis) 5 MG TABLET 1 TAB PO BID AFIB (Reported) Azithromycin 250 MG TABLET 1 DP PO AD INFECTION (Reported) 2 the first day followed by 1 for days 2-5 Benzonatate 100 MG CAPSULE 1 CAP PO TID PRN COUGH (Reported) Diltiazem HCl (Diltiazem 24HR ER) 180 MG CAP.ER.24H 1 CAP PO DAILY HTN ( Reported) Guaifenesin/Dextromethorphan (Coricidin Hbp Softgel) 200 MG-10 MG CAPSULE COUGH (Reported) Lisinopril 2.5 MG TABLET 1 TAB PO DAILY HTN (Reported) Metoprolol Tartrate (Lopressor) 50 MG TABLET 1 TAB PO BID HTN (Reported) Past History Travel History Traveled to [place] past 21 day No Medical History Blood Transfusion Hx: No Neurological: NONE EENT: NONE Cardiovascular: hypertension, A-FIB Respiratory: COPD Gastrointestinal: NONE Hepatic: NONE Renal: NONE Musculoskeletal: NONE Psychiatric: NONE Endocrine: NONE Blood Disorders: NONE Cancer(s): NONE ECONOMICS LECTURER/Reproductive: NONE Surgical History Surgical History: non-contributory Psychosocial History Where Do You Live? Home Services at Home: None Smoking Status: Former Smoker ETOH Use: occasional use Illicit Drug Use: denies illicit drug use Exam & Diagnostic Data Vital Signs and I&O Vital Signs Date Time Temp Pulse Resp B/P B/P Pulse O2 O2 Flow FiO2 Mean Ox Delivery Rate 11/24 0919 94 Room Air Room Air 11/24 0735 97.5 80 20 122/90 11/24 0734 97.5 80 20 122/90 11/24 0657 97.5 80 20 12290 91 Room Air 11/24 0000 Nasal 1.0L Cannula 11/23 2256 98.3 80 20 142/70 91 Nasal Cannula 11/23 2139 98.1 70 120/60 11/23 1953 Nasal 1.0L Cannula 11/23 1423 98.1 70 20 120/60 98 Room Air 11/23 1334 93 Nasal 1.0L Cannula Intake & Output 11/24 1600 11/24 0800 11/24 0000 11/23 1600 11/23 0800 11/23 0000 Intake Total 800 600 600 Output Total 400 550 Balance 400 50 600 Intake, Oral 800 600 600 Output, Urine 400 550 Patient 147 lb Weight Weight Bed scale Measurement Method Labs/Chan Results: Laboratory Tests 11/23 11/22 11/22 1855 2150 1556 Chemistry Sodium (137 - 145 mmol/L) 139 Potassium (3.5 - 5.1 mmol/L) 4.5 Chloride (98 - 107 mmol/L) 93 L Carbon Dioxide (22 - 30 mmol/L) 26 Anion Gap (5 - 16) 20 H BUN (9 - 20 mg/dL) 13 Creatinine (0.7 - 1.2 mg/dL) 0.8 Estimated GFR (>60 ml/min) > 60 BUN/Creatinine Ratio (7 - 25 %) 16.3 Troponin I (<0.11 ng/ml) < 0.01 Ayp-E-Ebvewjnuwdv Pept Cancelled Hematology CBC w Diff NO MAN DIFF REQ WBC (4.8 - 10.8 /CUMM) 16.7 H RBC (4.70 - 6.10 /CUMM) 4.72 Hgb (14.0 - 18.0 G/DL) 15.6 Hct (42 - 52 %) 46.9 MCV (80.0 - 94.0 FL) 99.3 H MCH (27.0 - 31.0 PG) 32.9 H MCHC (33.0 - 37.0 G/DL) 33.2 RDW (11.5 - 14.5 %) 12.9 Plt Count (130 - 400 /CUMM) 226 MPV (7.4 - 10.4 FL) 9.7 Gran % (42.2 - 75.2 %) 90.7 H Lymphocytes % (20.5 - 51.1 %) 3.7 L Monocytes % (1.7 - 9.3 %) 5.6 Eosinophils % (0 - 5 %) 0 Basophils % (0.0 - 2.0 %) 0 Absolute Granulocytes (1.4 - 6.5 /CUMM) 15.2 H Absolute Lymphocytes (1.2 - 3.4 /CUMM) 0.6 L Absolute Monocytes (0.10 - 0.60 /CUMM) 0.9 H Absolute Eosinophils (0.0 - 0.7 /CUMM) 0 Absolute Basophils (0.0 - 0.2 /CUMM) 0 11/22 11/22 11/22 1405 1358 1325 Chemistry Sodium (137 - 145 mmol/L) 141 Potassium (3.5 - 5.1 mmol/L) 4.5 Chloride (98 - 107 mmol/L) 95 L Carbon Dioxide (22 - 30 mmol/L) 27 Anion Gap (5 - 16) 19 H BUN (9 - 20 mg/dL) 15 Creatinine (0.7 - 1.2 mg/dL) 0.8 Estimated GFR (>60 ml/min) > 60 BUN/Creatinine Ratio (7 - 25 %) 18.8 Glucose (65 - 99 mg/dL) 135 H Calcium (8.4 - 10.2 mg/dL) 9.9 Total Bilirubin (0.2 - 1.3 mg/dL) 0.8 AST (17 - 59 U/L) 53 ALT (21 - 72 U/L) 38 Alkaline Phosphatase (< 127 U/L) 102 Troponin I (<0.11 ng/ml) < 0.01 Azx-K-Egsjwwhrogt Pept (<125 pg/mL) 923 H Total Protein (6.3 - 8.2 g/dL) 8.8 H Albumin (3.5 - 5.0 g/dL) 4.9 Globulin (1.9 - 4.2 gm/dL) 3.9 Albumin/Globulin Ratio (1.1 - 2.2 %) 1.3 TSH (0.270 - 4.200 uIU/mL) 0.782 Free T4 (0.78 - 2.44 ng/dL) 1.69 Coagulation D-Dimer High Sensitivty (0 - 243 ng/ml) < 200 Hematology CBC w Diff NO MAN DIFF REQ WBC (4.8 - 10.8 /CUMM) 6.3 RBC (4.70 - 6.10 /CUMM) 4.60 L Hgb (14.0 - 18.0 G/DL) 15.1 Hct (42 - 52 %) 44.4 MCV (80.0 - 94.0 FL) 96.5 H MCH (27.0 - 31.0 PG) 32.9 H MCHC (33.0 - 37.0 G/DL) 34.1 RDW (11.5 - 14.5 %) 12.4 Plt Count (130 - 400 /CUMM) 195 MPV (7.4 - 10.4 FL) 8.9 Gran % (42.2 - 75.2 %) 70.4 Lymphocytes % (20.5 - 51.1 %) 10.6 L Monocytes % (1.7 - 9.3 %) 18.6 H Eosinophils % (0 - 5 %) 0.1 Basophils % (0.0 - 2.0 %) 0.3 Absolute Granulocytes (1.4 - 6.5 /CUMM) 4.5 Absolute Lymphocytes (1.2 - 3.4 /CUMM) 0.7 L Absolute Monocytes (0.10 - 0.60 /CUMM) 1.2 H Absolute Eosinophils (0.0 - 0.7 /CUMM) 0 Absolute Basophils (0.0 - 0.2 /CUMM) 0 Diagnostic Data EKG Results 11/22/2017: Atrial fibrillation with a rapid ventricular response, borderline rightward axis , small inferior Q waves, and nondiagnostic ST-T wave abnormalities, cannot exclude ischemia. More T wave abnormalities when compared to earlier tracing. CXR Results 11/22/2017: Increased blunting of the right costophrenic angle age indeterminant Assessment/Plan Assessment/Plan [id number] w/ hx fmr tob use (d/c'd ~2009), COPD, HTN, nonischemic cardiomyopathy w/ HFrEF, & AF on Eliquis, metoprolol, diltiazem who presented to the ED on 11/22/2017 w/ 1 wk hx of prod cough, SOB, orthopnea, diarrhea, & fatigue despite OP Abx, inhalers, etc. prescribed by a walk-in clinic w/ CXR evidence of increased blunting of the R costophrenic angle c/w ch pleural thickening vs small effusion, elevated WBC count with L shift, & ECG revealing AF w/ RVR, & nondiagnostic T-wave abnormalities etc. His presentation is c/w bronchitis that is improving. The ventricular response to his atrial fibrillation has now also improved. Recommendations: * Continue on present antimicrobial therapy, inhalers, etc. * Continue on Eliquis for anticoagulation. * Continue on diltiazem, metoprolol, and lisinopril. * Check magnesium and maintain at or above 2.0 mEq per liter. * Reasonable to repeat an echocardiogram, however, this can be done on an outpatient basis if he is ready for discharge. * DVT prophylaxis being addressed by the anticoagulation for his chronic atrial fibrillation. Further recommendations will follow, Acute. Consult Acknowledgment - Thank you for your consult request.
[2017-11-24 14:33] VITALS: BP 110/70
--- NOTE | 2017-11-24 14:43 | Discharge Summary ---
Visit Information Visit Dates Admission Date: 11/22/17 Discharge Date: 11/25/17 Hospital Course Course Attending Physician: Zia Carrasco MD Primary Care Physician: Zia Carrasco MD Hospital Course: 62 year old male with past medical history significant for significant former tobacco smoking, COPD, HTN, nonischemic cardiomyopathy with systolic heart failure, and atrial fibrillation on Eliquis presented with a productive cough, exertional dyspnea, and orthopnea despite taking azithromycin and inhaled albuterol as an outpatient. The patient was admitted and treated for a COPD exacerbation secondary to a bronchitis. He was also evaluated by cardiology, had negative troponins and an echocardiogram performed during his hospital stay that ruled out acute cardiac causes of exertional dyspnea. His chest x-ray was negative for any infiltrates or evidence of pneumonia. He was afebrile, had no leukocytosis, and negative for influenza. He was treated with azithromycin, steroids, mucinex, and bronchodilator therapy with symptomatic relief. His cardiac medications were all continued from admission for rate control, hypertension and anticoagulation. He was discharged on a prednisone taper with instructions to follow up with his primary care physician, Dr. Carrasco, in one week. The patient will also continue routine follow up with Dr. Harding for cardiology. Allergies: Coded Allergies: NO KNOWN ALLERGIES (11/25/11) Significant Procedures: Echocardiogram 11/24/17 Small left ventricular cavity. Mild concentric left ventricular hypertrophy. No obvious regional wall motion abnormalities. Normal left ventricular ejection fraction visually estimated at 55%. Normal right ventricular size and function. Mild atrial dilatation. Mild mitral regurgitation. Trace aortic regurgitation. Trace tricuspid regurgitation. Unable to estimate the right ventricular systolic pressure. Trace pulmonic regurgitation. PA and lateral chest x-ray Lung volumes increased compatible with emphysema unchanged. Slight blunting of the right costophrenic angle compatible with pleural thickening or small pleural effusion increased compared to prior. The cardiac silhouette mediastinum pulmonary vascularity are normal. Spondylosis of the dorsal spine. Disposition Summary Disposition Principal Diagnosis: COPD exacerbation Bronchitis Additional Diagnosis: Atrial fibrillation HFrEF nonischemic cardiomyopathy COPD Discharge Disposition: home or self care Discharge Instructions General Discharge Information Code Status: Full Code Patient's Diet: Heart healthy diet Patient's Activity: As tolerated, no limitations Follow-Up Instructions/Appts: Please follow up with Dr. Carrasco in one week after discharge. Please follow up with Dr. Harding at your routine next schedule follow up visit Medications at Discharge Discharge Medications: Stop taking the following medications: Azithromycin (Azithromycin) 250 MG TABLET ORAL As Directed Qty = 6 Continue taking these medications: Diltiazem HCl (Diltiazem 24HR ER) 180 MG CAP.ER.24H 1 Capsule ORAL DAILY Instructions: LAST TAKEN: 11/25/17 8:00 am Apixaban (Eliquis) 5 MG TABLET 1 Tablet ORAL TWICE DAILY Comments: Last Taken: 11/25/17 Time: 8:00 am Benzonatate (Benzonatate) 100 MG CAPSULE 1 Capsule ORAL THREE TIMES DAILY as needed for COUGH Qty = 42 Comments: Last Taken: 11/25/17 Time: 8:00 am Metoprolol Tartrate (Lopressor) 50 MG TABLET 1 Tablet ORAL TWICE DAILY Comments: Last Taken: 11/25/17 Time: 8:00 am Guaifenesin/Dextromethorphan (Coricidin Hbp Softgel) 200 MG-10 MG CAPSULE as needed for COUGH Comments: not given while in hospital Lisinopril (Lisinopril) 2.5 MG TABLET 1 Tablet ORAL DAILY Comments: Last Taken: 11/25/17 Time: 8:00 am Start taking the following new medications: Azithromycin (Azithromycin) 500 MG TABLET 500 Milligram ORAL DAILY Qty = 3 No Refills Instructions: . Comments: Last Taken: 11/25/17 Time: 8:00 am Prednisone (Prednisone) 10 MG TABLET 1 Tablet ORAL As Directed Qty = 20 No Refills Instructions: TAKE 4 TABS 40MG 2/2 AND 2/3 TAKE 3 TABS 30MG 2/4 AND 2/5 TAKE 2 TABS 20MG 2/6 AND 2/7 TAKE 1 TAB 10MG 2/8 AND 2/9. Comments: Last Taken: 11/25/17 Time: 8:00 am Copies To: Mehdi PLASENCIA,Umang Baez; Zia Carrasco MD Attending MD Review Statement Documenting Attending: Zia Carrasco MD
[2017-11-24] MEDS ORDERED: AZITHROMYCIN500 M3 PO (15:47)
[2017-11-24] MEDS ORDERED: PREDNISONE10 M2 PO (15:50)
[2017-11-24 22:37] VITALS: BP 146/70
[2017-11-25 06:20] VITALS: BP 136/68
--- NOTE | 2017-11-25 07:02 | PN- Housestaff ---
Subjective Follow-up For: copd exacerbation Subjective: less exertional dyspnea and coughing, feeling better overall Review of Systems Constitutional: Reports: see HPI. Objective Last 24 Hrs of Vital Signs/I&O Vital Signs Date Time Temp Pulse Resp B/P B/P Pulse O2 O2 Flow FiO2 Mean Ox Delivery Rate 11/25 1005 94 Room Air 11/25 0816 138/84 11/25 0815 138/84 11/25 0620 98.4 79 20 136/68 95 Room Air 11/25 0000 Nasal 1.0L Cannula 11/24 2237 98.7 81 20 146/70 96 Room Air 11/24 2114 81 146/70 11/24 1930 92 Room Air Intake & Output 11/25 1600 11/25 0800 11/25 0000 Intake Total 100 120 Output Total Balance 100 120 Intake, IV 20 Intake, Oral 100 100 Physical Exam General Appearance: Alert, Oriented X3, Cooperative, No Acute Distress Cardiovascular: Regular Rate, Normal S1, Normal S2, No Murmurs Lungs: diminished air movement, no audible wheezing Abdomen: Normal Bowel Sounds, Soft, No Tenderness, No Masses Extremities: No Clubbing, No Cyanosis, No Edema, Normal Pulses Current Medications: Current Medications Sig/Marixa Start time Last Medication Dose Route Stop Time Status Admin Acetaminophen 650 MG Q6P PRN 11/22 171 DCD PO Albuterol Sulfate 3 ML BID 11/22 2199 DCD 11/25 INH 1002 Apixaban 5 MG BID 11/22 2199 DCD 11/25 PO 0815 Azithromycin 500 MG DAILY 11/25 1000 DCD 11/25 PO 0815 Benzonatate 100 MG TID 11/22 1709 DCD 11/25 PO 0815 Budesonide/ 2 PUF BID 11/22 2199 DCD 11/25 Formoterol Fumarate INH 0819 Diltiazem HCl 180 MG DAILY 11/23 1000 DCD 11/25 PO 0815 Guaifenesin 600 MG Q12 11/22 2199 DCD 11/25 PO 0816 Hydrocodone Bitart/ 1 TAB Q6P PRN 11/22 1715 DCD Acetaminophen PO Lisinopril 2.5 MG DAILY 11/23 1000 DCD 11/25 PO 0815 Methylprednisolone 40 MG Q12 11/24 2200 DC 11/24 IV 11/24 2300 2114 Metoprolol Tartrate 50 MG BID 11/22 2199 DCD 11/25 PO 0816 Oxycodone HCl 5 MG Q6P PRN 11/22 1715 DCD PO Prednisone 50 MG DAILY 11/25 1000 DCD 11/25 PO 0814 Assessment/Plan Assessment: 62 year old Chadian speaking male with PMH of COPD not on home oxygen, atrial fibrillation on Eliquis, HTN presents with productive cough and exertional dyspnea. COPD exacerbation: Continue PO azithromycin 500mg x 3 more days Start PO prednisone taper 50mg TRC evaluation and nebulized albuterol/ipatropium treatments Titrate off supplemental oxygen, maintain an SpO2 > 92% Mucinex and tessalon pearles for cough and congestion X-ray: Increased blunting of the right costophrenic angle age chronic pleural thickening versus small effusion HFrEF: Cardiology consultation with Dr. Harding, routine follow up LVEF 25% on last echocardiogram 2012 Troponins negative for myocardial ischemia as cause of dyspnea Atrial fibrillation: Continue anticoagulation with eliquis Continue rate control with metoprolol and cardizem HTN: Continue metoprolol, cardizem, lisinopril Heart healthy diet DVT ppx: on Eliquis Full code Problem List: 1. COPD exacerbation 2. Bronchitis Pain Ratin Pain Location: n/a Pain Goal: Pain 4 or less Pain Plan: prn Tomorrow's Labs & Rationales: none
[2017-11-25 08:16] VITALS: BP 138/84
[2017-11-25] MEDS ORDERED: AZITHROMYCIN500 M3 PO (10:15)
[2017-11-25] MEDS ORDERED: PREDNISONE10 M2 PO (10:15)
--- NOTE | 2017-11-25 10:50 | Patient Discharge Instructions ---
Discharge Instructions General Discharge Information You were seen/treated for: COPD EXACERBATION Special Instructions: FOLLOW UP WITH DR DASH ONE WEEK AFTER DISCHARGE Acute Coronary Syndrome Inclusion Criteria At DC or during hospital stay patient has or had the following: ACS DIAGNOSIS No Discharge Core Measures Meds if any: Prescribed or Continued at Discharge Meds if any: NOT Prescribed or Continued at Discharge Congestive Heart Failure Inclusion Criteria At DC or during hospital stay patient has or had the following: CHF DIAGNOSIS No Discharge Core Measures Meds if any: Prescribed or Continued at Discharge Meds if any: NOT Prescribed or Continued at Discharge Cerebrovascular accident Inclusion Criteria At DC or during hospital stay patient has or had the following: CVA/TIA Diagnosis No Discharge Core Measures Meds if any: Prescribed or Continued at Discharge Meds if any: NOT Prescribed or Continued at Discharge Venous thromboembolism Inclusion Criteria VTE Diagnosis No VTE Type NONE VTE Confirmed by (Test) NONE Discharge Core Measures - Per Current guidelines, there needs to be overlap - treatment for the first 5 days of Warfarin therapy. - If discharged on Warfarin prior to 5 days of - overlap therapy, the patient will need to be - assessed for post discharge needs including - *Post discharge parental anticoagulation - *Warfarin and/or parental anticoagulation education - *Follow up date to check INR post discharge At least 5 days overlap therapy as Inpatient No Meds if any: Prescribed or Continued at Discharge Note: Overlap Therapy is Warfarin and Anticoagulant Meds if any: NOT Prescribed or Continued at Discharge
--- NOTE | 2017-11-25 11:33 | PN- Att Addend ---
Attending Addendum Attending Brief Note Patient feeling and looking much better today, vital signs are stable fever, O2 saturations satisfactory on room air will discharge patient home but to take it easy for at least a week before going back to work taper down the steroids. Follow-up in office in a week either discharge summary and C Intake & Output 11/25 1600 11/25 0400 11/24 1600 11/24 0400 11/23 1600 11/23 0400 Intake Total 442 012 0507 1400 600 Output Total 400 950 Balance 666 702 7600 450 600 Intake, IV 20 250 Intake, Oral 135 977 7333 1400 600 Output, Urine 400 950 Patient 147 lb Weight Weight Bed scale Measurement Method Current Medications Sig/Marixa Start time Last Medication Dose Route Stop Time Status Admin Acetaminophen 650 MG Q6P PRN 11/22 171 DCD PO Albuterol Sulfate 3 ML BID 11/22 2199 DCD 11/25 INH 1002 Apixaban 5 MG BID 11/22 2199 DCD 11/25 PO 0815 Azithromycin 500 MG DAILY 11/25 1000 DCD 11/25 PO 0815 Benzonatate 100 MG TID 11/22 1709 DCD 11/25 PO 0815 Budesonide/ 2 PUF BID 11/22 2199 DCD 11/25 Formoterol Fumarate INH 0819 Diltiazem HCl 180 MG DAILY 11/23 1000 DCD 11/25 PO 0815 Guaifenesin 600 MG Q12 11/22 2199 DCD 11/25 PO 0816 Hydrocodone Bitart/ 1 TAB Q6P PRN 11/22 171 DCD Acetaminophen PO Lisinopril 2.5 MG DAILY 11/23 1000 DCD 11/25 PO 0815 Methylprednisolone 40 MG Q12 11/24 2199 DC 11/24 IV 11/24 2300 2114 Metoprolol Tartrate 50 MG BID 11/22 2199 DCD 11/25 PO 0816 Oxycodone HCl 5 MG Q6P PRN 11/22 171 DCD PO Prednisone 50 MG DAILY 11/25 1000 DCD 11/25 PO 0814 Laboratory Tests 11/23/17 1855: Anion Gap 20 H, Estimated GFR > 60, BUN/Creatinine Ratio 16.3, CBC w Diff NO MAN DIFF REQ, RBC 4.72, MCV 99.3 H, MCH 32.9 H, MCHC 33.2, RDW 12.9, MPV 9.7, Gran % 90.7 H, Lymphocytes % 3.7 L, Monocytes % 5.6, Eosinophils % 0, Basophils % 0, Absolute Granulocytes 15.2 H, Absolute Lymphocytes 0.6 L, Absolute Monocytes 0.9 H, Absolute Eosinophils 0, Absolute Basophils 0 11/22/17 2150: Troponin I < 0.01 11/22/17 1556: Sgc-[id number]-Ffcbalovfyh Pept Cancelled 11/22/17 1405: Anion Gap 19 H, Estimated GFR > 60, BUN/Creatinine Ratio 18.8, Glucose 135 H, Calcium 9.9, Total Bilirubin 0.8, AST 53, ALT 38, Alkaline Phosphatase 102, Troponin I < 0.01, Xkj-N-Ckpdkzefflt Pept 923 H, Total Protein 8.8 H, Albumin 4.9, Globulin 3.9, Albumin/Globulin Ratio 1.3, TSH 0.782, Free T4 1.69 11/22/17 1358: CBC w Diff NO MAN DIFF REQ, RBC 4.60 L, MCV 96.5 H, MCH 32.9 H, MCHC 34.1, RDW 12.4, MPV 8.9, Gran % 70.4, Lymphocytes % 10.6 L, Monocytes % 18.6 H, Eosinophils % 0.1, Basophils % 0.3, Absolute Granulocytes 4.5, Absolute Lymphocytes 0.7 L, Absolute Monocytes 1.2 H, Absolute Eosinophils 0, Absolute Basophils 0 11/22/17 1325: D-Dimer High Sensitivty < 200 Microbiology 11/23 409 URINE ROUT: Legionella Antigen - COMP 11/23 409 URINE ROUT: Streptococcus pneumoniae Antigen (M - COMP 11/22 1426 NASOPHARYN: Influenza Virus A & B Rapid Smear - COMP 11/22 1306 LOWER RESP: Respiratory Culture - CAN Cancelled: SPECIMEN NOT RECEIVED IN LABORATORY 11/22 1306 LOWER RESP: Gram Stain - CAN Cancelled: SPECIMEN NOT RECEIVED IN LABORATORY Microbiology 11/23 409 URINE ROUT: Legionella Antigen - COMP 11/23 409 URINE ROUT: Streptococcus pneumoniae Antigen (M - COMP 11/22 1426 NASOPHARYN: Influenza Virus A & B Rapid Smear - COMP 11/22 1306 LOWER RESP: Respiratory Culture - CAN Cancelled: SPECIMEN NOT RECEIVED IN LABORATORY 11/22 1306 LOWER RESP: Gram Stain - CAN Cancelled: SPECIMEN NOT RECEIVED IN LABORATORY Elevated white count probably secondary to steroid use.
--- NOTE | 2017-11-25 15:51 | ECHOCARDIOGRAM REPORT ---
SIENA GARCIA Age: 62 : 1955 Gender: M Exam Date: 11/24/2017 16:29 Exam Location: [place] Ht (in): 64 Wt (lb): 147 BSA: 1.75 BP: 110 / 70 Ordering Physician: Josey Hagen MD Referring Physician: Umang Harding MD Technologist: Laura Lopez [facility] Room Number: 224-01 Indications: HEART FAILURE Rhythm: Atrial fibrillation Technical Quality: Fair FINDINGS Left Ventricle Small left ventricular cavity. Mild concentric left ventricular hypertrophy. No obvious regional wall motion abnormalities. Normal left ventricular ejection fraction visually estimated at 55%. Right Ventricle Normal right ventricular size and function. Right Atrium Mild right atrial dilatation. Left Atrium Mild left atrial dilatation. Mitral Valve Mild mitral annular calcification. Mitral valve mildly thickened. Mild mitral regurgitation. Aortic Valve Trileaflet aortic valve. Mild aortic sclerosis. No aortic stenosis. Trace aortic regurgitation. Tricuspid Valve Structurally normal tricuspid valve. Trace tricuspid regurgitation. Unable to estimate the right ventricular systolic pressure. Pulmonic Valve Pulmonic valve not well visualized, grossly normal. Trace pulmonic regurgitation. Pericardium No pericardial effusion. Great Vessels Upper normal limit for size aortic root. Normal size inferior vena cava. CONCLUSIONS Small left ventricular cavity. Mild concentric left ventricular hypertrophy. No obvious regional wall motion abnormalities. Normal left ventricular ejection fraction visually estimated at 55%. Normal right ventricular size and function. Mild atrial dilatation. Mild mitral regurgitation. Trace aortic regurgitation. Trace tricuspid regurgitation. Unable to estimate the right ventricular systolic pressure. Trace pulmonic regurgitation. Significantly improved left ventricular function when compared to previous echocardiogram performed on 11/25/2011. Umang Harding M.D. (Electronically Signed) Final Date: 25 November 2017 15:51 MEASUREMENTS (Male / Female) Normal Values 2D ECHO LV Diastolic Diameter PLAX 3.6 cm 4.2 - 5.9 / 3.9 - 5.3 cm LV Systolic Diameter PLAX 2.2 cm 2.1 - 4.0 cm LV Fractional Shortening PLAX 38.9 % 25 - 46 % LV Ejection Fraction 2D Teich 70.2 % IVS Diastolic Thickness 1.2 cm LVPW Diastolic Thickness 1.1 cm LV Relative Wall Thickness 0.6 RV Internal Dim ED PLAX 2.4 cm 1.9 - 3.8 cm LVOT Diameter 2.1 cm Aortic Root Diameter 3.6 cm LA Systolic Diameter LX 4.0 cm 3.0 - 4.0 / 2.7 - 3.8 cm LA Volume 62.0 cm 18 - 58 / 22 - 52 cm Ascending Aorta Diameter 3.0 cm DOPPLER AV Peak Velocity 122.0 cm/s AV Peak Gradient 6.0 mmHg AV Mean Velocity 84.2 cm/s AV Mean Gradient 3.0 mmHg AV Velocity Time Integral 25.4 cm LVOT Peak Velocity 104.0 cm/s LVOT Peak Gradient 4.3 mmHg LVOT Mean Velocity 68.0 cm/s LVOT Mean Gradient 2.0 mmHg LVOT Velocity Time Integral 18.5 cm LVOT Stroke Volume 64.1 cm AV Area Cont Eq vti 2.5 cm AV Area Cont Eq pk 3.0 cm MV Peak Velocity 98.3 cm/s MV Peak Gradient 3.9 mmHg MV Mean Velocity 45.3 cm/s MV Mean Gradient 1.0 mmHg Mitral E Point Velocity 77.0 cm/s MV PHT Velocity 103.0 cm/s MV Deceleration [place] 496.0 cm/s MV Pressure Half Time 62.3 ms MV Area PHT 3.5 cm MV Deceleration Time 185.0 ms PV Peak Velocity 102.0 cm/s PV Peak Gradient 4.2 mmHg PV Mean Velocity 64.5 cm/s PV Mean Gradient 2.0 mmHg PV Velocity Time Integral 20.5 cm LV E' Lateral Velocity 15.9 cm/s Mitral E to LV E' Lateral Ratio 4.8 LV E' Septal Velocity 12.4 cm/s Mitral E to LV E' Septal Ratio 6.2
== END 2017-11-25 10:45 | DRG 191 ==
LOC: ERH 12:17 → 2NA 15:39 → ERHI 15:39 → ENRESERV 17:57 → ENTRNSPT 19:09 → CMPTRNSPT 19:25 → 2NA 19:31 → ENTRNSPT 11-25 10:31 → CMPTRNSPT 11-25 10:42 → 2NA 11-25 10:45
PROVIDERS: Physician Assistant; Student in an Organized Health Care Education/Training Program
DX: J44.1 Chronic obstructive pulmonary disease with (acute) exacerbation (principal); I42.9 Cardiomyopathy, unspecified; I50.20 Unspecified systolic (congestive) heart failure; J40 Bronchitis, not specified as acute or chronic; I48.91 Unspecified atrial fibrillation; Z79.01 Long term (current) use of anticoagulants; I10 Essential (primary) hypertension; Z79.51 Long term (current) use of inhaled steroids; Z87.891 Personal history of nicotine dependence
CPT/HCPCS: 2NASP; 36415; 71046; 82436; 87070; 87449; 87450; 87804; 87804-59; 93005; 93010; 93306; 97116-GO; 97161-GP; 97530-GO; J0456; J2920; J2930; J3490; J7040; J7060

== ENCOUNTER 2018-02-07 04:40 | Inpatient (IN) | payer OTHER ==
[~2018-02-07] VITALS: Ht 167.6 cm; Wt 69.4 kg
[~2018-02-07 04:40] MED LIST: AZITHROMYCIN250 M1 PO; AZITHROMYCIN500 M3 PO; BENZONATATE100 M1 PO; CORICIDIN HBP1 EAC1; DILTIAZEM 24HR180 MG PO; ELIQUIS5 M1 PO; LISINOPRIL2.5 M1 PO; LOPRESSOR50 M1 PO; PREDNISONE10 M2 PO
--- NOTE | 2018-02-07 05:11 | ED DYSPNEA/ASTHMA COMPLAINT ---
History of Present Illness General Chief Complaint: Dyspnea (COPD, CHF, Other) Stated Complaint: "DIFF.BREATHING X1DAY,WEAKNESS,HX ASTHMA,SPO2 97% Source: patient, family, old records Exam Limitations: no limitations Vital Signs & Intake/Output Vital Signs & Intake/Output Vital Signs Date Time Temp Pulse Resp B/P B/P Pulse O2 O2 Flow FiO2 Mean Ox Delivery Rate 02/07 0629 97 Nasal 2.0L Cannula 02/07 627 98.3 130 20 168/96 98 Nasal 2.0L Cannula 02/08 456 Room Air 02/07 455 182/98 02/08 452 97.0 135 26 177/103 95 Room Air Allergies Coded Allergies: NO KNOWN ALLERGIES (11/25/11) Reconcile Medications Apixaban (Eliquis) 5 MG TABLET 1 TAB PO BID AFIB (Reported) Azithromycin 500 MG TABLET 500 MG PO DAILY bronchitis . Benzonatate 100 MG CAPSULE 1 CAP PO TID PRN COUGH (Reported) Diltiazem HCl (Diltiazem 24HR ER) 180 MG CAP.ER.24H 1 CAP PO DAILY HTN ( Reported) LAST TAKEN: 11/25/17 8:00 am Guaifenesin/Dextromethorphan (Coricidin Hbp Softgel) 200 MG-10 MG CAPSULE COUGH (Reported) Lisinopril 2.5 MG TABLET 1 TAB PO DAILY HTN (Reported) Metoprolol Tartrate (Lopressor) 50 MG TABLET 1 TAB PO BID HTN (Reported) Prednisone 10 MG TABLET 1 TAB PO AD TAPER TAKE 4 TABS 40MG 2/2 AND 2/3 TAKE 3 TABS 30MG 2/4 AND 2/5 TAKE 2 TABS 20MG 2/6 AND 2/7 TAKE 1 TAB 10MG 2/8 AND 2/9. Core Measure Meds Pre-Hospital Eliquis Triage Note: PER PT/FAMILY SOB ALL DAY ADMITTED 2 MONTHS AGO WITH PNEUMONIA ?ASTHMA HX Triage Nurses Notes Reviewed? yes Onset: 2 days Duration: day(s):, continues in ED, getting worse Timing: recent history Severity: moderate, severe Activities at Onset: rest Prior Episodes/Possible Cause: occasional episodes Modifying Factors: Improves With: rest. Worsens With: movement. Associated Symptoms: cough, weakness HPI: 2 days prior to admission patient complains of progressive shortness of breath not improved with inhalers associated with productive cough of yellow sputum. He denies fever chills nausea vomiting diarrhea abdominal pain chest pain headache dysuria rash bleeding. Past History Travel History Traveled to [place] past 21 day No Medical History Any Pertinent Medical History? 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 No Review of Systems Review of Systems Constitutional: Reports: see HPI, malaise. EENTM: Reports: no symptoms. Respiratory: Reports: see HPI, cough, short of breath, sputum production. Cardiovascular: Reports: no symptoms. GI: Reports: no symptoms. Genitourinary: Reports: no symptoms. Musculoskeletal: Reports: no symptoms. Skin: Reports: no symptoms. Neurological/Psychological: Reports: no symptoms. Hematologic/Endocrine: Reports: no symptoms. Immunologic/Allergic: Reports: no symptoms. All Other Systems: Reviewed and Negative Physical Exam Physical Exam General Appearance: well developed/nourished, alert, awake, anxious, mild distress, obese Head: atraumatic, normal appearance Eyes: Bilateral: normal appearance, PERRL, EOMI. Ears, Nose, Throat: normal pharynx, normal ENT inspection Neck: normal inspection, supple, full range of motion, no midline tenderness Respiratory: chest non-tender, decreased breath sounds Cardiovascular: normal peripheral pulses, tachycardia, irregularly irregular, norml femoral pulses equa Peripheral Pulses: 4+ carotid (R), 4+ carotid (L) Gastrointestinal: normal bowel sounds, soft, non-tender, no organomegaly Extremities: normal inspection, normal capillary refill, normal range of motion, no edema Neurologic/Psych: no motor/sensory deficits, awake, alert, oriented x 3, normal gait, normal mood/affect Skin: intact, normal color, warm/dry Lymphatic: no anterior cervical apolinar Core Measures ACS in differential dx? Yes No ASA d/t Pharmacological CI CVA/TIA Diagnosis No Sepsis Present: No Sepsis Focused Exam Completed? No Progress Differential Diagnosis: bronchitis, CHF, COPD, pneumonia Plan of Care: Orders Procedure Date/time Status Regular Diet 02/07 B Active OXYGEN SETUP (GEN) 02/07 629 Active Saline Lock 02/07 629 Active Admit to inpatient 02/07 629 Active Vital Signs 02/07 629 Active Activity/Ambulation 02/07 629 Active Code Status 02/07 629 Active Add-on Test (ER Only) 02/07 0500 Active TROPONIN LEVEL 02/07 455 Complete PROTHROMBIN TIME 02/07 455 Complete MAGNESIUM 02/07 455 Complete COMPREHENSIVE METABOLIC PANEL 02/07 455 Complete CBC WITHOUT DIFFERENTIAL 02/07 455 Complete B-TYPE NATRIURETIC PEP (BNP) 02/07 455 Complete EKG 02/07 045 Active Current Medications Sig/Marixa Start time Last Medication Dose Stop Time Status Admin Diltiazem HCl 15 MG ONCE ONE 02/07 0545 CAN (Cardizem) 02/07 0546 Glycerin 1 INFANT ONE ONE 02/07 0515 CAN (Glycerol 1 02/07 0516 Pediatric Supp) Laboratory Tests 02/07/18 0515: Anion Gap 16, Estimated GFR > 60, BUN/Creatinine Ratio 17.5, Glucose 160 H, Calcium 10.1, Magnesium 1.2 L, Total Bilirubin 0.6, AST 30, ALT 23, Alkaline Phosphatase 66, Troponin I < 0.01, Wkh-X-Outzqudlhtr Pept 850 H, Total Protein 8.6 H, Albumin 5.0, Globulin 3.6, Albumin/Globulin Ratio 1.4, PT 12.0, INR 1.10 , CBC w Diff NO MAN DIFF REQ, RBC 4.70, MCV 96.8 H, MCH 32.6 H, MCHC 33.7, RDW 13.4, MPV 8.9, Gran % 81.1 H, Lymphocytes % 9.2 L, Monocytes % 8.0, Eosinophils % 0.6, Basophils % 1.1, Absolute Granulocytes 11.6 H, Absolute Lymphocytes 1.3, Absolute Monocytes 1.2 H, Absolute Eosinophils 0.1, Absolute Basophils 0.2 Diagnostic Imaging: Viewed by Me: Radiology Read. Discussed w/RAD: Radiology Read. Initial ED EKG: AFIB, nonspecific ST T wave chg Prior EKG: unchanged Rhythm Strip: atrial fibrillation Departure Departure Time of Disposition: 643 Disposition: STILL A PATIENT Condition: Stable Clinical Impression Primary Impression: Atrial fibrillation with rapid ventricular response Secondary Impressions: COPD with exacerbation, Leukocytosis, unspecified Referrals: Zia Carrasco MD (PCP/Family) Departure Forms: Customer Survey General Discharge Information Admission Note Spoke With: Zia Carrasco MD Documentation of Exam: Documentation of any treatments & extenuating circumstances including Concerns Regarding Discharge (functional status, medication knowledge or non-compliance, living conditions, etc.) that warrant an admission rather than observation: Supplemental oxygen beta agonist nebs IV steroids heart rate control cardiology evaluation medication adjustment cardiac monitoring continuing care discharge planning. Critical Care Note Critical Care Note Critical Care Time: 30-74 min (45)
[2018-02-07 05:23] LABS: ABSOLUTE BASOPHIL COUNT 0.2 /CUMM (0.0-0.2); ABSOLUTE EOSINOPHIL COUNT 0.1 /CUMM (0.0-0.7); ABSOLUTE GRANULOCYTE CT 11.6 /CUMM (1.4-6.5); ABSOLUTE LYMPH COUNT 1.3 /CUMM (1.2-3.4); ABSOLUTE MONOCYTE COUNT 1.2 /CUMM (0.10-0.60); BASOPHIL % 1.1 % (0.0-2.0); EOSINOPHIL % 0.6 % (0-5); GRANULOCYTE % 81.1 % (42.2-75.2); HEMATOCRIT 45.5 % (42-52); MEAN CORPUSCULAR HGB 32.6 PG (27.0-31.0); MEAN CORPUSCULAR HGB CONC 33.7 G/DL (33.0-37.0); MEAN CORPUSCULAR VOLUME 96.8 FL (80.0-94.0); MEAN PLATELET VOLUME 8.9 FL (7.4-10.4); PLATELET COUNT 243 /CUMM (130-400); RBC DISTRIBUTION WIDTH 13.4 % (11.5-14.5); WHITE BLOOD CELL COUNT 14.4 /CUMM (4.8-10.8)
--- NOTE | 2018-02-07 05:24 | RADIOLOGY REPORT ---
EXAMINATION: XR CHEST CLINICAL INFORMATION: Cough and shortness of breath COMPARISON: 11/22/2017 TECHNIQUE: 2 views of the chest were obtained. FINDINGS: The lungs are hyperexpanded with flattening of the diaphragm. There is no consolidation, edema, or effusion. No pneumothorax. The cardiomediastinal silhouette is within normal limits. No acute osseous abnormality. Mild degenerative changes of the spine. IMPRESSION: Hyperexpanded lungs consistent with known emphysema. No acute pulmonary finding.
--- NOTE | 2018-02-07 08:03 | History & Physical ---
See Addendum General Information and HPI MD Statement: I have seen and personally examined SIENA REILLY and documented this H&P. The patient is a 62 year old M who presented with a patient stated chief complaint of SOB.. Source of Information: patient, family, old records Exam Limitations: no limitations History of Present Illness: Mr. Reilly is a 62-year-old male of [place] descent with PMH of, COPD, hypertension, nonischemic cardiomyopathy with systolic heart failure, and atrial fibrillation on Eliquis for anticoagulation and beta blockers/non- dihydropyridine calcium channel antagonist therapy for rate control who presented to the ED on 02/07/2018 complaining of shortness of breath and chest discomfort. Much of the clinical history was obtained from the patient's daughter Emily due to a language barrier. Patient states that he was his normal state of health until 02/05/2018. 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 On the evening of he subsequently felt that he was having a more difficult time breathing. He continued to express dyspnea over the course of the evening. He also endorsed paroxysmal nocturnal dyspnea. He was unable to lay flat. At approximately 4 AM on 02/07/2018 he woke up his and asked to be brought to the emergency department. During this time he was experiencing significant chest discomfort which he rates at a 10 out of 10 in severity. Described as a pressure-like sensation radiating up to the neck. During our clinical interaction the patient continued to look uncomfortable in mild distress. He rated that his chest pain at a 4 out of 10 in severity. He was still concerned about the difficulty breathing. Over the last few weeks he denies any fever, or being exposed to any recent sick contacts. Denies any changes to his medications. He does also endorse some night sweats. Endorses shortness breath and wheezing. Denies any abdominal pain or stool changes denies any nausea or vomiting. Denies any dysuria or urinary frequency or worsening leg edema. He endorses good medication compliance. Well Driller Helper is Dr. Harding. PCP is Dr. Carrasco. Allergies/Medications Allergies: Coded Allergies: NO KNOWN ALLERGIES (11/25/11) Home Med list Apixaban (Eliquis) 5 MG TABLET 1 TAB PO BID AFIB (Reported) Azithromycin 500 MG TABLET 500 MG PO DAILY bronchitis . Benzonatate 100 MG CAPSULE 1 CAP PO TID PRN COUGH (Reported) Diltiazem HCl (Diltiazem 24HR ER) 180 MG CAP.ER.24H 1 CAP PO DAILY HTN ( Reported) LAST TAKEN: 11/25/17 8:00 am Lisinopril 2.5 MG TABLET 1 TAB PO DAILY HTN (Reported) Metoprolol Tartrate (Lopressor) 50 MG TABLET 1 TAB PO BID HTN (Reported) Compliance With Home Meds: UNKNOWN Past History Travel History Traveled to [place] past 21 day No Medical History Neurological: NONE EENT: NONE Cardiovascular: hypertension, A-FIB Respiratory: COPD Gastrointestinal: NONE Hepatic: NONE Renal: NONE Musculoskeletal: NONE Psychiatric: NONE Endocrine: NONE Blood Disorders: NONE Cancer(s): NONE [employer] RE[employer]NAGER/Reproductive: NONE History of MRSA: No History of VRE: No History of CDIFF: No Surgical History Surgical History: non-contributory Past Family/Social History Psychosocial History Services at Home: None Smoking Status: Former Smoker ETOH Use: occasional use Functional Ability ADLs Independent: dressing, eating, toileting, bathing. Ambulation: independent IADLs Independent: shopping, housework, finances, food prep, telephone, transportation , medication admin. Review of Systems Review of Systems Constitutional: Reports: see HPI. Exam & Diagnostic Data Last 24 Hrs of Vital Signs/I&O Vital Signs Date Time Temp Pulse Resp B/P B/P Pulse O2 O2 Flow FiO2 Mean Ox Delivery Rate 02/07 0749 97.0 100 26 142/79 94 Room Air 02/07 0629 97 Nasal 2.0L Cannula 02/07 06 98.3 130 20 168/96 98 Nasal 2.0L Cannula 02/07 0456 Room Air 02/07 0455 182/98 02/07 0452 97.0 135 26 177/103 95 Room Air Physical Exam General Appearance Alert, Oriented X3, Mild Distress Skin No Rashes Sepsis Skin Exam (color): Normal for Ethnicity HEENT PERRLA, Mucous Membr. moist/pink Neck Supple Cardiovascular Normal S1, Normal S2, Tachycardia. Irregular rate and rhythm Lungs Decreased air movement. No rhonchi, wheezing or crackles. Abdomen Normal Bowel Sounds, Soft, No Tenderness Neurological Normal Gait, Normal Speech Extremities No Edema Vascular Normal Pulses Last 24 Hrs of Labs/Chan: Laboratory Tests 02/07/18 0515: Anion Gap 16, Estimated GFR > 60, BUN/Creatinine Ratio 17.5, Glucose 160 H, Calcium 10.1, Magnesium 1.2 L, Total Bilirubin 0.6, AST 30, ALT 23, Alkaline Phosphatase 66, Troponin I < 0.01, Hkk-C-Vvyifybbxxb Pept 850 H, Total Protein 8.6 H, Albumin 5.0, Globulin 3.6, Albumin/Globulin Ratio 1.4, PT 12.0, INR 1.10 , CBC w Diff NO MAN DIFF REQ, RBC 4.70, MCV 96.8 H, MCH 32.6 H, MCHC 33.7, RDW 13.4, MPV 8.9, Gran % 81.1 H, Lymphocytes % 9.2 L, Monocytes % 8.0, Eosinophils % 0.6, Basophils % 1.1, Absolute Granulocytes 11.6 H, Absolute Lymphocytes 1.3, Absolute Monocytes 1.2 H, Absolute Eosinophils 0.1, Absolute Basophils 0.2 Diagnostic Data CXR Results SERVICE DATE: 02/07/18 EXAM TYPE: RAD - XRY-CHEST XRAY, TWO VIEWS EXAMINATION: XR CHEST CLINICAL INFORMATION: Cough and shortness of breath COMPARISON: 11/22/2017 TECHNIQUE: 2 views of the chest were obtained. FINDINGS: The lungs are hyperexpanded with flattening of the diaphragm. There is no consolidation, edema, or effusion. No pneumothorax. The cardiomediastinal silhouette is within normal limits. No acute osseous abnormality. Mild degenerative changes of the spine. IMPRESSION: Hyperexpanded lungs consistent with known emphysema. No acute pulmonary finding. DICTATED BY: All PLASENCIA,Wali Assessment/Plan Assessment: Mr. Reilly is a 62-year-old male of [place] descent with PMH of, COPD, hypertension, nonischemic cardiomyopathy with systolic heart failure, and atrial fibrillation on Eliquis for anticoagulation and beta blockers/non- dihydropyridine calcium channel antagonist therapy for rate control who presented to the ED on 02/07/2018 complaining of shortness of breath and chest discomfort. His current dyspnea and dyspnea on exertion is likely attributed to COPD exacerbation in the setting of recent physical labor/changes to the weather. Chest discomfort could be cardiogenic and will need to be ruled out for ACS. Initial EKG showed no acute changes. #Atrial fibrillation with RVR. #Chest pain rule out ACS. #Significant dyspnea likely related to COPD exacerbation. #History of hypertension. #Former nicotine dependence. #Electrolyte abnormalities. -Admit the patient to telemetry. -Rule out ACS: Serial Troponins and EKG -Cardiology consultation -Consider IV Cardizem drip control. -Continue Eliquis for anti-coagulation. -Continue home antihypertensives. -If patient remains tachycardic may consider diltiazem drip for heart rate below 110. -Routinely monitor electrolytes and maintain magnesium level and minimal 2.0. Potassium 4.0. -Patient recently had an echocardiogram, will defer to cardiology for recommendations whether this test needs to be repeated. -May consider addition of Symbicort if does not receive any relief. -IV azithromycin for anti-inflammatory properties. -Currently watch off antibiotics. If febrile may consider empirically covering for community-acquired pneumonia. -LRC, strep pneumo, Legionella urinary antigens to be followed. -Incentive Spirometer -Regular diet. -DVT prophylaxis Eliquis. -Patient is a full code. As Ranked By This Provider Problem List: 1. ATRIAL FIBRILATION 2. COPD exacerbation Core Measures/Misc (07/11) Acute Coronary Syndrome ACS Diagnosis: No Congestive Heart Failure Congestive Heart Failure Diagnosis No Cerebrovascular Accident CVA/TIA Diagnosis: No VTE (View Protocol) VTE Risk Factors Age>40 No Mechanical VTE Prophylaxis d/t N/A MechProphylax Ordered No VTE Pharm Prophylaxis d/t NA PharmProphylax ordered Sepsis (View protocol) Sepsis Present: No
--- NOTE | 2018-02-07 10:59 | Admission Certification ---
Admission Certification Certification Statement - As attending physician, I certify that at the time of - admission, based on clinical presentation, severity of - symptoms, need for further diagnostic testing and - therapeutic interventions, and risk of adverse outcomes - without in-hospital treatment, in my clinical assessment, - this patient requires an acute hospital stay for a minimum - of two nights or longer. I have also considered psychsocial - factors such as support system, advanced age, financial - issues, cognitive issues, and failed out-patient treatments, - past re-admission history, safety of patient, and lack of - compliance as applicable. Specific rationale supporting this admission is: Shortness of breath exacerbation of COPD and rapid atrial fibrillation
--- NOTE | 2018-02-07 11:02 | PN- Att Addend ---
Attending Addendum Attending Brief Note 62-year-old white male with history of COPD, was doing reasonably well but saturating was doing a lot of work outside this morning suddenly increased shortness of breath when he arrived to the ER he was in rapid atrial fibrillation and after emergency treatments patient feels improved will keep the patient monitor his heart beat and breathing cardiology see the patient to adjust his medications the patient got 1 dose of IV antibiotics and IV steroids in the emergency room Current Medications Sig/Marixa Start time Last Medication Dose Route Stop Time Status Admin Acetaminophen 0 .STK-MED ONE 02/07 0825 DC IV Acetaminophen 1,000 MG ONCE ONE 02/07 08 DC 02/07 IV 02/07 0816 0823 Albuterol Sulfate 3 ML ONCE ONE 02/07 0815 DC 02/07 INH 02/07 08 1033 Albuterol Sulfate 3 ML ONCE ONE 02/07 0630 DC 02/07 INH 02/07 0631 0629 Apixaban 5 MG BID 02/07 0900 AC 02/07 PO 1040 Azithromycin 500 MG DAILY 02/07 0900 AC 02/07 Dextrose/Water 250 ML IV 1040 Ceftriaxone Sodium 0 .STK-MED ONE 02/07 0637 DC .ROUTE Ceftriaxone Sodium 1,000 MG ONCE ONE 02/07 06 DC 02/07 IV 02/07 0616 0641 Diltiazem HCl 15 MG ONCE ONE 02/07 0545 CAN IV PUSH 02/07 0546 Glycerin 1 INFANT ONE ONE 02/07 0515 CAN OH 02/07 0516 Ipratropium [place] 2.5 ML ONCE ONE 02/07 0815 DC 02/07 INH 02/07 0816 1033 Ipratropium [place] 2.5 ML ONCE ONE 02/07 0630 DC 02/07 INH 02/07 0631 0629 Lorazepam 0 .STK-MED ONE 02/07 0926 DC .ROUTE Lorazepam 0.5 MG ONE ONE 02/07 0845 DC 02/07 IV 02/07 0846 0926 Magnesium Sulfate 0 .STK-MED ONE 02/07 1017 DC .ROUTE Magnesium Sulfate 1 GM Q2H 02/07 0845 AC 02/07 Dextrose/Water 100 ML IV 02/07 1244 1101 Methylprednisolone 40 MG Q8 02/07 1400 AC IV Methylprednisolone 0 .STK-MED ONE 02/07 0637 DC .ROUTE Methylprednisolone 125 MG ONCE ONE 02/07 06 DC 02/07 IV 02/07 0616 0641 Metoprolol Tartrate 0 .STK-MED ONE 02/07 0803 DC IV Metoprolol Tartrate 5 MG ONCE ONE 02/07 0715 DC 02/07 IV 02/07 0716 0804 Metoprolol Tartrate 0 .STK-MED ONE 02/07 0637 DC IV Metoprolol Tartrate 0 .STK-MED ONE 02/07 0550 DC IV Nitroglycerin 0 .STK-MED ONE 02/07 0936 DC SL Nitroglycerin 0.4 MG ONCE ONE 02/07 0830 DC 02/07 SL 02/07 0831 0933 Laboratory Tests 02/07/18 0515: Anion Gap 16, Estimated GFR > 60, BUN/Creatinine Ratio 17.5, Glucose 160 H, Calcium 10.1, Magnesium 1.2 L, Total Bilirubin 0.6, AST 30, ALT 23, Alkaline Phosphatase 66, Troponin I < 0.01, Wpm-A-Tmvvdegeovn Pept 850 H, Total Protein 8.6 H, Albumin 5.0, Globulin 3.6, Albumin/Globulin Ratio 1.4, PT 12.0, INR 1.10 , CBC w Diff NO MAN DIFF REQ, RBC 4.70, MCV 96.8 H, MCH 32.6 H, MCHC 33.7, RDW 13.4, MPV 8.9, Gran % 81.1 H, Lymphocytes % 9.2 L, Monocytes % 8.0, Eosinophils % 0.6, Basophils % 1.1, Absolute Granulocytes 11.6 H, Absolute Lymphocytes 1.3, Absolute Monocytes 1.2 H, Absolute Eosinophils 0.1, Absolute Basophils 0.2 Vital Signs Date Time Temp Pulse Resp B/P B/P Pulse O2 O2 Flow FiO2 Mean Ox Delivery Rate 02/07 1033 Nasal 2.0L Cannula 02/07 915 98.0 103 18 168/90 96 Room Air 02/07 0810 98.0 110 26 179/111 94 Nasal 3.0L Cannula 02/07 0805 90 19 148/98 98 Nasal 2.0L Cannula 02/07 0804 90 148/98 02/07 0749 97.0 100 26 142/79 94 Room Air 02/07 0629 97 Nasal 2.0L Cannula 02/07 0627 98.3 130 20 168/96 98 Nasal 2.0L Cannula 02/07 0456 Room Air 02/07 0455 182/98 02/07 0452 97.0 135 26 177/103 95 Room Air
[2018-02-07 16:42] VITALS: BP 132/84
--- NOTE | 2018-02-07 19:31 | Cons- Cardiology ---
General Information and HPI Consulting Request Date of Consult: 02/07/18 Requested By: Zia Carrasco MD Source of Information: patient, family, old records Exam Limitations: language barrier History of Present Illness: Mr. Juan Antonio Reilly is a 62-year-old male of [place] descent with a long-standing history of tobacco use (discontinued ~2009), COPD, hypertension, nonischemic cardiomyopathy with systolic heart failure, and atrial fibrillation on the factor Xa inhibitor Eliquis (apixaban) for anticoagulation and beta jimbo/non-dihydropyridine calcium channel antagonist therapy for rate control who presented to the ED earlier today with complaints of shortness of breath and was found to be in atrial fibrillation with a rapid ventricular response, despite compliance to his outpatient medical regimen. The history was obtained from his daughter, Emily due to the language barrier. Mr. Reilly states that he has been in his usual good state of health and spent much of 02/05/2018 doing yard work. The following evening he began to experience difficulty breathing that was progressive and subsequently experienced orthopnea and paroxysmal nocturnal dyspnea. At ~ 4:00 a.m. he woke up his and asked to be taken to the ED since along with the symptoms described above he was now experiencing severe ("10/10"), "pressure-like" chest discomfort with radiation to his neck. He claims compliance to his medications, denies any recent changes in his medical regimen and/or the dosages of his medications, dietary indiscretion, etc. In the ED he received IV metoprolol 5 mg 2 in the ED with transient improvement in the ventricular response to his age for ablation, but again has ventricular response rate in the 120 bpm. His last echocardiogram was performed on 11/24/2017 revealed a small left ventricular cavity, mild concentric left ventricular hypertrophy, no obvious regional wall motion abnormalities, and a normal ejection fraction visually estimated at 55%, normal right ventricular size and function, mild atrial dilatation, some age-related valvular changes, no pericardial effusion, and a normal size aortic root. The Doppler portion of the study revealed mild mitral, trace aortic, trace tricuspid, and trace pulmonic regurgitation. His last stress test was performed on 11/27/2011 and revealed no clinical, electrocardiographic, or nuclear evidence of ischemia. Allergies/Medications Allergies: Coded Allergies: NO KNOWN ALLERGIES (11/25/11) Home Med List: Apixaban (Eliquis) 5 MG TABLET 1 TAB PO BID AFIB (Reported) Azithromycin 500 MG TABLET 500 MG PO DAILY bronchitis . Benzonatate 100 MG CAPSULE 1 CAP PO TID PRN COUGH (Reported) Diltiazem HCl (Diltiazem 24HR ER) 180 MG CAP.ER.24H 1 CAP PO DAILY HTN ( Reported) LAST TAKEN: 11/25/17 8:00 am Lisinopril 2.5 MG TABLET 1 TAB PO DAILY HTN (Reported) Metoprolol Tartrate (Lopressor) 50 MG TABLET 1 TAB PO BID HTN (Reported) Review of Systems Review of Systems: A 14 point system review was obtained was noncontributory, other than as above. 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 Home Services at Home: None Smoking Status: Former Smoker ETOH Use: occasional use Functional Ability ADLs Independent: dressing, eating, toileting, bathing. Ambulation: independent IADLs Independent: shopping, housework, finances, food prep, telephone, transportation , medication admin. Exam & Diagnostic Data Vital Signs and I&O Vital Signs Date Time Temp Pulse Resp B/P B/P Pulse O2 O2 Flow FiO2 Mean Ox Delivery Rate 02/07 1858 98 Nasal 2.0L Cannula 02/07 1853 Nasal 2.0L Cannula 02/07 1642 97.8 134 18 132/84 97 02/07 1600 Nasal 2.0L Cannula 02/07 1420 97.3 107 18 142/90 97 Room Air 02/07 1033 Nasal 2.0L Cannula 02/07 0915 98.0 103 18 168/90 96 Room Air 02/07 0810 98.0 110 26 179/111 94 Nasal 3.0L Cannula 02/07 0805 90 19 148/98 98 Nasal 2.0L Cannula 02/07 0804 90 148/98 02/07 0800 96 Nasal 2.0L Cannula 02/07 0749 97.0 100 26 142/79 94 Room Air 02/07 0629 97 Nasal 2.0L Cannula 02/07 0627 98.3 130 20 168/96 98 Nasal 2.0L Cannula 02/07 045 Room Air 02/07 0455 182/98 02/07 045 97.0 135 26 177/103 95 Room Air Intake & Output 02/07 0802/07 0000 02/06 0802/06 0000 Intake Total Output Total Balance Patient 153 lb Weight Weight Standing Scale Measurement Method Physical Exam: Well-developed, well-nourished middle-aged male in no acute distress with nasal oxygen in place. Vital signs: See above. HEENT: Normocephalic, atraumatic, EOMI, slightly dry mucous membranes. Neck: No JVD, no bruits. Lungs: Decreased breath sounds bilaterally. Heart: S1, S2 (irregularly, irregular) with no murmur, gallop, or rub. PMI fifth ICS at MCL. Abdomen: Soft, nontender, positive bowel sounds. Extremities: No edema. Labs/Chan Results: Laboratory Tests 02/07 02/07 02/07 1745 1123 0515 Chemistry Sodium (137 - 145 mmol/L) 138 Potassium (3.5 - 5.1 mmol/L) 4.2 Chloride (98 - 107 mmol/L) 96 L Carbon Dioxide (22 - 30 mmol/L) 25 Anion Gap (5 - 16) 16 BUN (9 - 20 mg/dL) 14 Creatinine (0.7 - 1.2 mg/dL) 0.8 Estimated GFR (>60 ml/min) > 60 BUN/Creatinine Ratio (7 - 25 %) 17.5 Glucose (65 - 99 mg/dL) 160 H Calcium (8.4 - 10.2 mg/dL) 10.1 Magnesium (1.6 - 2.3 mg/dL) 1.2 L Total Bilirubin (0.2 - 1.3 mg/dL) 0.6 AST (17 - 59 U/L) 30 ALT (21 - 72 U/L) 23 Alkaline Phosphatase (< 127 U/L) 66 Troponin I (<0.11 ng/ml) Pending < 0.01 < 0.01 Lhv-X-Opzgcznpire Pept (<125 pg/mL) 850 H Total Protein (6.3 - 8.2 g/dL) 8.6 H Albumin (3.5 - 5.0 g/dL) 5.0 Globulin (1.9 - 4.2 gm/dL) 3.6 Albumin/Globulin Ratio (1.1 - 2.2 %) 1.4 Coagulation PT (9.4 - 12.5 SEC) 12.0 INR (0.90 - 1.17) 1.10 Hematology CBC w Diff NO MAN DIFF REQ WBC (4.8 - 10.8 /CUMM) 14.4 H RBC (4.70 - 6.10 /CUMM) 4.70 Hgb (14.0 - 18.0 G/DL) 15.3 Hct (42 - 52 %) 45.5 MCV (80.0 - 94.0 FL) 96.8 H MCH (27.0 - 31.0 PG) 32.6 H MCHC (33.0 - 37.0 G/DL) 33.7 RDW (11.5 - 14.5 %) 13.4 Plt Count (130 - 400 /CUMM) 243 MPV (7.4 - 10.4 FL) 8.9 Gran % (42.2 - 75.2 %) 81.1 H Lymphocytes % (20.5 - 51.1 %) 9.2 L Monocytes % (1.7 - 9.3 %) 8.0 Eosinophils % (0 - 5 %) 0.6 Basophils % (0.0 - 2.0 %) 1.1 Absolute Granulocytes (1.4 - 6.5 /CUMM) 11.6 H Absolute Lymphocytes (1.2 - 3.4 /CUMM) 1.3 Absolute Monocytes (0.10 - 0.60 /CUMM) 1.2 H Absolute Eosinophils (0.0 - 0.7 /CUMM) 0.1 Absolute Basophils (0.0 - 0.2 /CUMM) 0.2 Diagnostic Data EKG Results 02/07/2018: Atrial fibrillation with a rapid ventricular response and otherwise unremarkable. No significant change when compared to tracing from earlier today. CXR Results 02/07/2018: Hyperexpanded lungs consistent with known emphysema. No acute pulmonary finding. Assessment/Plan Assessment/Plan [id number] w/ hx former long-standing history of tobacco use (discontinued ~2009 ), COPD, HTN, nonischemic cardiomyopathy w/ previous systolic HF, & AF on AC w/ the factor Xa inhibitor, Eliquis (apixaban) & beta jimbo/non-dihydropyridine calcium channel antagonist Rx for rate control who presented to the ED earlier today w/ c/o SOB, orthopnea, PND, etc. and was found to be in AF w/ a RVR, despite compliance to his OP Rx. His history, exam, and studies suggest an acute exacerbation of COPD as the major reason for his pulmonary decompensation, although there may be a component of acute diastolic heart failure. Doubt acute coronary syndrome. Recommendations: * Telemetry admission, follow-up troponins, follow-up ECGs. * Diltiazem drip to improve control ventricular response to his atrial fibrillation. * Continue on his present cardiac regimen for continued management of his previous dilated cardiomyopathy, atrial fibrillation, etc. * Oxygen/TRC/nebulizer treatments, antimicrobial therapy, steroids, etc., Per hospitalist and pulmonary medicine. * No need to repeat echocardiogram, as one performed recently. * DVT prophylaxis being addressed by the anticoagulation for his atrial fibrillation. Further recommendations will follow, Thank you. Consult Acknowledgment - Thank you for your consult request. Thank you. Consult Acknowledgment - Thank you for your consult request.
[2018-02-07 21:06] VITALS: BP 112/68
[2018-02-07 22:26] VITALS: BP 124/80
[2018-02-08 06:36] VITALS: BP 140/90
--- NOTE | 2018-02-08 07:33 | PN- Housestaff ---
Subjective Follow-up For: Dyspnea Atrial fibrillation with RVR Tele-Events Since Last Visit: Afebrile, rate 91-121, no events. Subjective: The patient was seen and examined. He offers no complaints. He reports that his shortness of breath has resolved. Denies any headache, dizziness, lightheadedness, nausea, vomiting, chest pain, shortness of breath, palpitation, abdominal pain. His heart rate is fluctuating from her low 100s to 140s. There is a shortage for Cardizem drip, therefore he was not started on a drip by overnight team. He has received 30 mg Cardizem early in the morning. Review of Systems Constitutional: Reports: no symptoms. Denies: chills, diaphoresis, fever, malaise, weakness, unexplained weight loss. Objective Last 24 Hrs of Vital Signs/I&O Vital Signs Date Time Temp Pulse Resp B/P B/P Pulse O2 O2 Flow FiO2 Mean Ox Delivery Rate 02/08 0800 Nasal 2.0L Cannula 02/08 0636 98.2 130 20 140/90 97 Nasal 2.0L Cannula 02/08 0625 142 140/90 02/08 0000 96 Nasal 2.0L Cannula 02/07 2243 115 124/78 02/07 2226 98.5 140 24 124/80 97 02/07 2106 128 112/68 02/07 1858 98 Nasal 2.0L Cannula 02/07 1853 Nasal 2.0L Cannula 02/07 1642 97.8 134 18 132/84 97 02/07 1600 Nasal 2.0L Cannula 02/07 1420 97.3 107 18 142/90 97 Room Air Intake & Output 02/08 1600 02/08 0800 02/08 0000 Intake Total 200 400 Output Total Balance 200 400 Intake, Oral 200 400 Patient 154 lb Weight Physical Exam General Appearance: Alert, Oriented X3, Cooperative, No Acute Distress Skin: No Rashes HEENT: Atraumatic, PERRLA, EOMI, Mucous Membr. moist/pink Neck: Supple Lymphatic: Cervical nl Cardiovascular: irregular Lungs: Clear to Auscultation, Normal Air Movement Abdomen: Normal Bowel Sounds, Soft, No Tenderness, No Hepatospenomegaly, No Masses Neurological: Normal Speech Extremities: No Clubbing, No Cyanosis, No Edema, Normal Pulses, No Tenderness/ Swelling Vascular: Normal Pulses, Pulses Symmetrical Current Medications: Current Medications Sig/Marixa Start time Last Medication Dose Route Stop Time Status Admin Albuterol Sulfate 3 ML Q4P PRN 02/07 1900 AC INH Apixaban 5 MG BID 02/07 09 AC 02/08 PO 0842 Azithromycin 500 MG DAILY 02/07 0900 AC 02/08 Dextrose/Water 250 ML IV 0842 Diltiazem HCl 180 MG DAILY 02/08 0900 AC 02/08 PO 0842 Diltiazem HCl 30 MG ONCE ONE 02/07 2245 DC 02/07 PO 02/07 224 224 Diltiazem HCl 125 MG Q24H 02/07 2030 DC Sodium Chloride 100 ML IV Magnesium Sulfate 1 GM Q2H 02/07 0845 DC 02/07 Dextrose/Water 100 ML IV 02/07 1244 1221 Methylprednisolone 40 MG Q8 02/07 1400 AC 02/08 IV 0620 Verapamil HCl 5 MG ONE ONE 02/07 2100 DC 02/08 IV 02/07 2101 0625 Last 24 Hrs of Lab/Chan Results Last 24 Hrs of Labs/Mics: Laboratory Tests 02/08/18 0630: Anion Gap 12, Estimated GFR > 60, BUN/Creatinine Ratio 20.0, CBC w Diff NO MAN DIFF REQ, RBC 4.52 L, MCV 96.7 H, MCH 32.4 H, MCHC 33.5, RDW 13.7, MPV 10.0, Gran % 92.2 H, Lymphocytes % 4.1 L, Monocytes % 3.6, Eosinophils % 0, Basophils % 0.1, Absolute Granulocytes 16.4 H, Absolute Lymphocytes 0.7 L, Absolute Monocytes 0.6, Absolute Eosinophils 0, Absolute Basophils 0 02/07/18 1745: Troponin I < 0.01 Microbiology 02/07 1512 NASOPHARYN: Influenza Virus A & B Rapid Smear - COMP Assessment/Plan Assessment: This is a 62-year-old gentleman of [place] descent with PMH of, COPD, hypertension, nonischemic cardiomyopathy with systolic heart failure, and atrial fibrillation on Eliquis for anticoagulation and beta blockers/non- dihydropyridine calcium channel antagonist therapy for rate control who presented to the ED on 02/07/2018 complaining of shortness of breath and chest discomfort. #Atrial fibrillation with RVR. #Chest pain- ruled out ACS. #Significant dyspnea likely related to COPD exacerbation-improving #History of hypertension. #Former nicotine dependence. #Electrolyte abnormalities. Plan: -Monitor on telemetry. 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 -Continue Eliquis for anti-coagulation. -Routinely monitor electrolytes and maintain magnesium level and minimal 2.0. Potassium 4.0. -Cardiology did not recommend a repeat echo -Shortness of breath improving, continue with IV steroids and azithromycin -If febrile may consider empirically covering for community-acquired pneumonia. -LRC, strep pneumo, Legionella urinary antigens to be followed. -Incentive Spirometer -Heart healthy -DVT prophylaxis Eliquis. -Patient is a full code. Problem List: 1. COPD with exacerbation 2. Atrial fibrillation with rapid ventricular response Pain Ratin Pain Location: NA Pain Goal: Remain pain free Pain Plan: NA Tomorrow's Labs & Rationales: CBC to monitor H&H BEP and magnesium to monitor electrolytes
[2018-02-08 08:04] LABS: ABSOLUTE BASOPHIL COUNT 0 /CUMM (0.0-0.2); ABSOLUTE EOSINOPHIL COUNT 0 /CUMM (0.0-0.7); ABSOLUTE GRANULOCYTE CT 16.4 /CUMM (1.4-6.5); ABSOLUTE LYMPH COUNT 0.7 /CUMM (1.2-3.4); ABSOLUTE MONOCYTE COUNT 0.6 /CUMM (0.10-0.60); BASOPHIL % 0.1 % (0.0-2.0); EOSINOPHIL % 0 % (0-5); HEMATOCRIT 43.7 % (42-52); MEAN CORPUSCULAR HGB 32.4 PG (27.0-31.0); MEAN CORPUSCULAR HGB CONC 33.5 G/DL (33.0-37.0); MEAN CORPUSCULAR VOLUME 96.7 FL (80.0-94.0); PLATELET COUNT 225 /CUMM (130-400); RBC DISTRIBUTION WIDTH 13.7 % (11.5-14.5); RED BLOOD CELL CT 4.52 /CUMM (4.70-6.10); WHITE BLOOD CELL COUNT 17.7 /CUMM (4.8-10.8)
[2018-02-08 09:00] LABS: GRANULOCYTE % 92.2 % (42.2-75.2)
--- NOTE | 2018-02-08 10:37 | PN- Att Addend ---
Attending Addendum Attending Brief Note Patient breathing is much better. Patient on telemetry due to his abnormality in heart rate. Still seems to be in atrial fibrillation the rate fluctuates. Dr. Harding managing this. His lungs sound a little better and will continue present treatments and adjust medications for his heart continue IV steroids at least 1 more day. 24 TOTALS 02/08 0000 02/07 0000 Intake Total 400 Output Total Balance 400 Intake, Oral 400 Patient 154 lb Weight Weight Standing Scale Measurement Method Current Medications Sig/Marixa Start time Last Medication Dose Route Stop Time Status Admin Albuterol Sulfate 3 ML Q4P PRN 02/07 1900 AC INH Apixaban 5 MG BID 02/07 0900 AC 02/08 PO 0842 Azithromycin 500 MG DAILY 02/07 0900 AC 02/08 Dextrose/Water 250 ML IV 0842 Diltiazem HCl 180 MG DAILY 02/08 0900 AC 02/08 PO 0842 Diltiazem HCl 30 MG ONCE ONE 02/07 2245 DC 02/07 PO 02/07 2246 2243 Diltiazem HCl 125 MG Q24H 02/07 2030 DC Sodium Chloride 100 ML IV Magnesium Sulfate 1 GM Q2H 02/07 0845 DC 02/07 Dextrose/Water 100 ML IV 02/07 1244 1221 Methylprednisolone 40 MG Q8 02/07 1400 AC 02/08 IV 0620 Verapamil HCl 5 MG ONE ONE 02/07 2100 DC 02/08 IV 02/07 2101 0625 Laboratory Tests 02/08/18 0630: Anion Gap 12, Estimated GFR > 60, BUN/Creatinine Ratio 20.0, CBC w Diff NO MAN DIFF REQ, RBC 4.52 L, MCV 96.7 H, MCH 32.4 H, MCHC 33.5, RDW 13.7, MPV 10.0, Gran % 92.2 H, Lymphocytes % 4.1 L, Monocytes % 3.6, Eosinophils % 0, Basophils % 0.1, Absolute Granulocytes 16.4 H, Absolute Lymphocytes 0.7 L, Absolute Monocytes 0.6, Absolute Eosinophils 0, Absolute Basophils 0 02/07/18 1745: Troponin I < 0.01 02/07/18 1123: Troponin I < 0.01 02/07/18 0515: Anion Gap 16, Estimated GFR > 60, BUN/Creatinine Ratio 17.5, Glucose 160 H, Calcium 10.1, Magnesium 1.2 L, Total Bilirubin 0.6, AST 30, ALT 23, Alkaline Phosphatase 66, Troponin I < 0.01, Coe-Q-Jkukpcqkmbg Pept 850 H, Total Protein 8.6 H, Albumin 5.0, Globulin 3.6, Albumin/Globulin Ratio 1.4, PT 12.0, INR 1.10 , CBC w Diff NO MAN DIFF REQ, RBC 4.70, MCV 96.8 H, MCH 32.6 H, MCHC 33.7, RDW 13.4, MPV 8.9, Gran % 81.1 H, Lymphocytes % 9.2 L, Monocytes % 8.0, Eosinophils % 0.6, Basophils % 1.1, Absolute Granulocytes 11.6 H, Absolute Lymphocytes 1.3, Absolute Monocytes 1.2 H, Absolute Eosinophils 0.1, Absolute Basophils 0.2 Microbiology 02/07 1512 NASOPHARYN: Influenza Virus A & B Rapid Smear - COMP Vital Signs Date Time Temp Pulse Resp B/P B/P Pulse O2 O2 Flow FiO2 Mean Ox Delivery Rate 02/08 0800 Nasal 2.0L Cannula 02/08 0636 98.2 130 20 140/90 97 Nasal 2.0L Cannula 02/08 0625 142 140/90 02/08 0000 96 Nasal 2.0L Cannula 02/07 2243 115 124/78 02/07 2226 98.5 140 24 124/80 97 02/07 2106 128 112/68 02/07 1858 98 Nasal 2.0L Cannula 02/07 1853 Nasal 2.0L Cannula 02/07 1642 97.8 134 18 132/84 97 02/07 1600 Nasal 2.0L Cannula 02/07 1420 97.3 107 18 142/90 97 Room Air White count is higher maybe related to the steroids.
[2018-02-08 14:26] VITALS: BP 140/82
[2018-02-08 21:14] VITALS: BP 130/88
[2018-02-09 06:47] VITALS: BP 130/70
--- NOTE | 2018-02-09 07:59 | PN- Housestaff ---
See Addendum Subjective Follow-up For: Dyspnea Atrial fibrillation with RVR Subjective: The patient was seen and examined. He offers no complaints. Denies any headache, dizziness, lightheadedness, nausea, vomiting, chest pain, shortness of breath, palpitation, abdominal pain. HR in 70s-90s Review of Systems Constitutional: Reports: no symptoms. Objective Last 24 Hrs of Vital Signs/I&O Vital Signs Date Time Temp Pulse Resp B/P B/P Pulse O2 O2 Flow FiO2 Mean Ox Delivery Rate 02/09 0647 98.1 94 20 130/70 95 Room Air 02/09 0000 96 Room Air 02/08 2222 86.0 130/88 02/08 2114 98.9 67 20 130/88 94 02/08 1944 96 Room Air Room Air 02/08 1820 98 Room Air 02/08 1450 95 Nasal 2.0L Cannula 02/08 1426 97.8 93 20 140/82 98 Nasal Cannula 02/08 1301 158 142/90 02/08 0800 Nasal 2.0L Cannula Intake & Output 02/09 0800 02/09 0000 02/08 1600 Intake Total 400 600 600 Output Total Balance 400 600 600 Intake, Oral 400 600 600 Patient 247 lb Weight Weight Bed scale Measurement Method Physical Exam General Appearance: Alert, Oriented X3, Cooperative, No Acute Distress Current Medications: Current Medications Sig/Marixa Start time Last Medication Dose Route Stop Time Status Admin Albuterol Sulfate 3 ML Q4P PRN 02/07 1900 AC INH Apixaban 5 MG BID 02/07 0900 AC 02/08 PO 2221 Azithromycin 500 MG DAILY 02/07 0900 AC 02/08 Dextrose/Water 250 ML IV 0842 Diltiazem HCl 180 MG DAILY 02/08 0900 AC 02/08 PO 0842 Methylprednisolone 40 MG Q8 02/07 1400 AC 02/09 IV 0648 Metoprolol Tartrate 50 MG BID 02/08 1258 AC 02/08 PO 2222 Patient Medication 1 ED ONE ONE 02/08 1645 DC 02/08 Teaching ED 02/08 1646 1650 Last 24 Hrs of Lab/Chan Results Last 24 Hrs of Labs/Mics: Laboratory Tests 02/09/18 0619: Sodium Pending, Potassium Pending, Chloride Pending, Carbon Dioxide Pending, Anion Gap Pending, BUN Pending, Creatinine Pending, BUN/Creatinine Ratio Pending , Magnesium Pending, CBC w Diff Pending, WBC Pending, RBC Pending, Hgb Pending, Hct Pending, MCV Pending, MCH Pending, MCHC Pending, RDW Pending, Plt Count Pending, MPV Pending Assessment/Plan Assessment: This is a 62-year-old gentleman of [place] descent with PMH of, COPD, hypertension, nonischemic cardiomyopathy with systolic heart failure, and atrial fibrillation on Eliquis for anticoagulation and beta blockers/non- dihydropyridine calcium channel antagonist therapy for rate control who presented to the ED on 02/07/2018 complaining of shortness of breath and chest discomfort. #Atrial fibrillation with RVR. #Chest pain- ruled out ACS. #Significant dyspnea likely related to COPD exacerbation-improving #History of hypertension. #Former nicotine dependence. #Electrolyte abnormalities. Plan: -Monitor on telemetry. 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 -Continue Eliquis for anti-coagulation. -Routinely monitor electrolytes and maintain magnesium level and minimal 2.0. Potassium 4.0. -Cardiology did not recommend a repeat echo -continue with IV steroids and azithromycin-transition to PO tomorrow -If febrile may consider empirically covering for community-acquired pneumonia. -LRC, strep pneumo, Legionella urinary antigens to be followed. -Incentive Spirometer -Heart healthy -DVT prophylaxis Eliquis. -Patient is a full code Problem List: 1. ATRIAL FIBRILATION 2. Bronchitis Pain Ratin Pain Location: NA Pain Goal: Remain pain free Pain Plan: NA Tomorrow's Labs & Rationales: CBC to monitor H&H BEP and magnesium to monitor electrolytes
[2018-02-09 08:21] LABS: ABSOLUTE BASOPHIL COUNT 0.1 /CUMM (0.0-0.2); ABSOLUTE EOSINOPHIL COUNT 0 /CUMM (0.0-0.7); ABSOLUTE GRANULOCYTE CT 21.1 /CUMM (1.4-6.5); ABSOLUTE LYMPH COUNT 0.6 /CUMM (1.2-3.4); ABSOLUTE MONOCYTE COUNT 0.6 /CUMM (0.10-0.60); BASOPHIL % 0.3 % (0.0-2.0); EOSINOPHIL % 0 % (0-5); HEMATOCRIT 46.3 % (42-52); MEAN CORPUSCULAR HGB 32.7 PG (27.0-31.0); MEAN CORPUSCULAR HGB CONC 33.7 G/DL (33.0-37.0); MEAN CORPUSCULAR VOLUME 97.1 FL (80.0-94.0); MEAN PLATELET VOLUME 10.3 FL (7.4-10.4); PLATELET COUNT 240 /CUMM (130-400); RBC DISTRIBUTION WIDTH 13.7 % (11.5-14.5); RED BLOOD CELL CT 4.77 /CUMM (4.70-6.10); WHITE BLOOD CELL COUNT 22.4 /CUMM (4.8-10.8)
[2018-02-09 09:01] LABS: GRANULOCYTE % 94.4 % (42.2-75.2)
--- NOTE | 2018-02-09 10:22 | PN- Att Addend ---
Attending Addendum Attending Brief Note Patient feeling and looking better sitting in the chair, not short of breath. Heart rate under better control Vital signs are stable no fever. Better air entry which check with cardiology regarding his heart rate control medications. Switch steroids to by mouth is stable start disposition plans Intake & Output 02/09 1600 02/09 0400 02/08 1600 02/08 0400 02/07 1600 02/07 0400 Intake Total 400 600 800 400 Output Total Balance 400 600 800 400 Intake, Oral 400 600 800 400 Patient 247 lb 154 lb 153 lb Weight Weight Bed scale Standing Scale Measurement Method Current Medications Sig/Marixa Start time Last Medication Dose Route Stop Time Status Admin Albuterol Sulfate 3 ML Q4P PRN 02/07 1900 AC INH Apixaban 5 MG BID 02/07 0900 AC 02/09 PO 0818 Azithromycin 500 MG DAILY 02/07 0900 AC 02/09 Dextrose/Water 250 ML IV 0818 Diltiazem HCl 180 MG DAILY 02/08 0900 AC 02/09 PO 0818 Magnesium Oxide 400 MG ONE ONE 02/09 0845 DC 02/09 PO 02/09 0846 0900 Methylprednisolone 40 MG Q8 02/07 1400 AC 02/09 IV 0648 Metoprolol Tartrate 50 MG BID 02/08 1258 AC 02/09 PO 0818 Patient Medication 1 ED ONE ONE 02/08 1645 DC 02/08 Teaching ED 02/08 1646 1650 Laboratory Tests 02/09/18 0619: Anion Gap 15, Estimated GFR > 60, BUN/Creatinine Ratio 27.5 H, Magnesium 1.8, CBC w Diff NO MAN DIFF REQ, RBC 4.77, MCV 97.1 H, MCH 32.7 H, MCHC 33.7, RDW 13.7, MPV 10.3, Gran % 94.4 H, Lymphocytes % 2.8 L, Monocytes % 2.5, Eosinophils % 0, Basophils % 0.3, Absolute Granulocytes 21.1 H, Absolute Lymphocytes 0.6 L, Absolute Monocytes 0.6, Absolute Eosinophils 0, Absolute Basophils 0.1 02/08/18 0630: Anion Gap 12, Estimated GFR > 60, BUN/Creatinine Ratio 20.0, Magnesium 1.9, CBC w Diff NO MAN DIFF REQ, RBC 4.52 L, MCV 96.7 H, MCH 32.4 H, MCHC 33.5, RDW 13.7, MPV 10.0, Gran % 92.2 H, Lymphocytes % 4.1 L, Monocytes % 3.6, Eosinophils % 0, Basophils % 0.1, Absolute Granulocytes 16.4 H, Absolute Lymphocytes 0.7 L, Absolute Monocytes 0.6, Absolute Eosinophils 0, Absolute Basophils 0 02/07/18 1745: Troponin I < 0.01 02/07/18 1123: Troponin I < 0.01 02/07/18 0515: Anion Gap 16, Estimated GFR > 60, BUN/Creatinine Ratio 17.5, Glucose 160 H, Calcium 10.1, Magnesium 1.2 L, Total Bilirubin 0.6, AST 30, ALT 23, Alkaline Phosphatase 66, Troponin I < 0.01, Qoc-Q-Ijfhvffdhmy Pept 850 H, Total Protein 8.6 H, Albumin 5.0, Globulin 3.6, Albumin/Globulin Ratio 1.4, PT 12.0, INR 1.10 , CBC w Diff NO MAN DIFF REQ, RBC 4.70, MCV 96.8 H, MCH 32.6 H, MCHC 33.7, RDW 13.4, MPV 8.9, Gran % 81.1 H, Lymphocytes % 9.2 L, Monocytes % 8.0, Eosinophils % 0.6, Basophils % 1.1, Absolute Granulocytes 11.6 H, Absolute Lymphocytes 1.3, Absolute Monocytes 1.2 H, Absolute Eosinophils 0.1, Absolute Basophils 0.2 Microbiology 02/07 151 NASOPHARYN: Influenza Virus A & B Rapid Smear - COMP 02/07 857 URINE ROUT: Legionella Antigen - CAN Cancelled: SPECIMEN NOT RECEIVED IN LABORATORY 02/07 857 URINE ROUT: Streptococcus pneumoniae Antigen (M - CAN Cancelled: SPECIMEN NOT RECEIVED IN LABORATORY 02/07 857 LOWER RESP: Respiratory Culture - CAN Cancelled: SPECIMEN NOT RECEIVED IN LABORATORY 02/07 857 LOWER RESP: Gram Stain - CAN Cancelled: SPECIMEN NOT RECEIVED IN LABORATORY Microbiology 02/07 151 NASOPHARYN: Influenza Virus A & B Rapid Smear - COMP 02/07 857 URINE ROUT: Legionella Antigen - CAN Cancelled: SPECIMEN NOT RECEIVED IN LABORATORY 02/07 857 URINE ROUT: Streptococcus pneumoniae Antigen (M - CAN Cancelled: SPECIMEN NOT RECEIVED IN LABORATORY 02/07 857 LOWER RESP: Respiratory Culture - CAN Cancelled: SPECIMEN NOT RECEIVED IN LABORATORY 02/07 857 LOWER RESP: Gram Stain - CAN Cancelled: SPECIMEN NOT RECEIVED IN LABORATORY Vital Signs Date Time Temp Pulse Resp B/P B/P Pulse O2 O2 Flow FiO2 Mean Ox Delivery Rate 02/09 0818 90 130/70 02/09 0800 95 Room Air 02/09 0647 98.1 94 20 130/70 95 Room Air 02/09 0000 96 Room Air 02/08 2222 86.0 130/88 02/08 2114 98.9 67 20 130/88 94 02/08 1944 96 Room Air Room Air 02/08 1820 98 Room Air 02/08 1450 95 Nasal 2.0L Cannula 02/08 1426 97.8 93 20 140/82 98 Nasal Cannula 02/08 1301 158 142/90 White count still elevated probably related to the steroids.
[2018-02-09 15:06] VITALS: BP 132/70
--- NOTE | 2018-02-09 20:47 | PN- Cardiology ---
Subjective Subjective: Feels improved. The ventricular response to his atrial fibrillation has been running in the 60- 80s for the most part. Objective Vital Signs and I&Os Vital Signs Date Time Temp Pulse Resp B/P B/P Pulse O2 O2 Flow FiO2 Mean Ox Delivery Rate 02/09 1935 97 Room Air 02/09 1506 98.8 78 18 132/70 96 Room Air 02/09 1210 95 Room Air 02/09 0818 90 130/70 02/09 0800 95 Room Air 02/09 0647 98.1 94 20 130/70 95 Room Air 02/09 0000 96 Room Air 02/08 2222 86.0 130/88 02/08 2114 98.9 67 20 130/88 94 Intake & Output 02/09 1600 02/09 0800 02/09 0000 02/08 1600 02/08 0800 02/08 0000 Intake Total 850 400 600 600 200 400 Output Total Balance 850 400 600 600 200 400 Intake, IV 250 Intake, Oral 600 400 600 600 200 400 Patient 247 lb 154 lb Weight Weight Bed scale Measurement Method Physical Exam: Well-developed, well-nourished middle-aged male in no acute distress with nasal oxygen in place. Vital signs: See above. HEENT: Normocephalic, atraumatic, EOMI, slightly dry mucous membranes. Neck: No JVD, no bruits. Lungs: Decreased breath sounds bilaterally with occasional rhonchi/wheezing. Heart: S1, S2 with no murmur, gallop, or rub. PMI fifth ICS at MCL. Abdomen: Soft, nontender, positive bowel sounds. Extremities: No edema. Current Medications: Current Medications Sig/Marixa Start time Last Medication Dose Route Stop Time Status Admin Albuterol Sulfate 3 ML Q4P PRN 02/07 1900 AC INH Apixaban 5 MG BID 02/07 0900 AC 02/09 PO 0818 Azithromycin 500 MG DAILY 02/07 0900 AC 02/09 Dextrose/Water 250 ML IV 0818 Diltiazem HCl 180 MG DAILY 02/08 0900 AC 02/09 PO 0818 Magnesium Oxide 400 MG ONE ONE 02/09 0845 DC 02/09 PO 02/09 0846 0900 Methylprednisolone 40 MG BID 02/09 2100 AC IV Methylprednisolone 40 MG Q8 02/07 1400 DC 02/09 IV 0648 Metoprolol Tartrate 50 MG BID 02/08 1258 AC 02/09 PO 0818 Results Last 48 Hrs of Labs/Mics: Laboratory Tests 02/09/18 0619: Anion Gap 15, Estimated GFR > 60, BUN/Creatinine Ratio 27.5 H, Magnesium 1.8, CBC w Diff NO MAN DIFF REQ, RBC 4.77, MCV 97.1 H, MCH 32.7 H, MCHC 33.7, RDW 13.7, MPV 10.3, Gran % 94.4 H, Lymphocytes % 2.8 L, Monocytes % 2.5, Eosinophils % 0, Basophils % 0.3, Absolute Granulocytes 21.1 H, Absolute Lymphocytes 0.6 L, Absolute Monocytes 0.6, Absolute Eosinophils 0, Absolute Basophils 0.1 02/08/18 0630: Anion Gap 12, Estimated GFR > 60, BUN/Creatinine Ratio 20.0, Magnesium 1.9, CBC w Diff NO MAN DIFF REQ, RBC 4.52 L, MCV 96.7 H, MCH 32.4 H, MCHC 33.5, RDW 13.7, MPV 10.0, Gran % 92.2 H, Lymphocytes % 4.1 L, Monocytes % 3.6, Eosinophils % 0, Basophils % 0.1, Absolute Granulocytes 16.4 H, Absolute Lymphocytes 0.7 L, Absolute Monocytes 0.6, Absolute Eosinophils 0, Absolute Basophils 0 Assessment/Plan Assessment/Plan [id number] w/ hx former long-standing history of tobacco use (discontinued ~2009 ), COPD, HTN, nonischemic cardiomyopathy w/ previous systolic HF, & AF on AC w/ the factor Xa inhibitor, Eliquis (apixaban) & beta jimbo/non-dihydropyridine calcium channel antagonist Rx for rate control who presented to the ED earlier today w/ c/o SOB, orthopnea, PND, etc. and was found to be in AF w/ a RVR, despite compliance to his OP Rx. His history, exam, and studies suggest an acute exacerbation of COPD as the major reason for his pulmonary decompensation, although there may be a component of acute diastolic heart failure. Recommendations: * While the ventricular response rates are acceptable at rest, he had heart rates in excess of 1 30 bpm and ambulating in his room. * Would increase his diltiazem from 180 mg of the sustained release preparation to 240 mg. * Continue on his metoprolol at 50 mg twice daily. * Continue his NOAC for his atrial fibrillation and DVT prophylaxis. Continue telemetry? Yes
[2018-02-09 22:44] VITALS: BP 138/88
[2018-02-10 07:17] VITALS: BP 140/80
--- NOTE | 2018-02-10 07:49 | PN- Housestaff ---
Subjective Follow-up For: Dyspnea Atrial fibrillation with RVR Tele-Events Since Last Visit: Atrial fibrillation, rate 63-92. Subjective: The patient was seen and examined. He offers no complaints. The patient denies any headache, dizziness, lightheadedness, nausea, vomiting, chest pain, shortness of breath, palpitation, abdominal pain. Worsening of leukocytosis since admission. Review of Systems Constitutional: Reports: no symptoms. Objective Last 24 Hrs of Vital Signs/I&O Vital Signs Date Time Temp Pulse Resp B/P B/P Pulse O2 O2 Flow FiO2 Mean Ox Delivery Rate 02/10 0857 97 Room Air 02/10 0826 6 140/80 02/10 0717 97.8 60 20 140/80 96 Room Air 02/10 0000 Room Air 02/09 2244 98.8 113 18 138/88 97 Room Air 02/09 2052 106 138/88 02/09 1935 97 Room Air 02/09 1506 98.8 78 18 132/70 96 Room Air 02/09 1210 95 Room Air Intake & Output 02/10 1600 02/10 0800 02/10 0000 Intake Total 120 120 Output Total Balance 120 120 Intake, Oral 120 120 Patient 153 lb Weight Physical Exam General Appearance: Alert, Oriented X3, Cooperative, No Acute Distress Other Physical Findings: General Appearance: Alert, Oriented X3, Cooperative, No Acute Distress Skin: No Rashes HEENT: Atraumatic, PERRLA, EOMI, Mucous Membr. moist/pink Neck: Supple Lymphatic: Cervical nl Cardiovascular: Irregularly irregular Lungs: Clear to Auscultation, mildly diminished breath sounds bilaterally. No expiratory wheezes Abdomen: Normal Bowel Sounds, Soft, No Tenderness, No Hepatospenomegaly, No Masses Neurological: Normal Speech Extremities: No Clubbing, No Cyanosis, No Edema, Normal Pulses, No Tenderness/ Swelling Vascular: Normal Pulses, Pulses Symmetrical Current Medications: Current Medications Sig/Marixa Start time Last Medication Dose Route Stop Time Status Admin Albuterol Sulfate 3 ML Q4P PRN 02/07 190 AC INH Apixaban 5 MG BID 02/07 900 AC 02/10 PO 825 Azithromycin 500 MG DAILY 02/07 900 AC 02/10 Dextrose/Water 250 ML IV 825 Diltiazem HCl 240 MG DAILY 02/10 900 AC 02/10 PO 825 Diltiazem HCl 180 MG DAILY 02/08 900 DC 02/09 PO 0818 Methylprednisolone 40 MG DAILY 02/10 0900 AC 02/10 IV 0832 Methylprednisolone 40 MG BID 02/09 2100 DC 02/09 IV 2048 Methylprednisolone 40 MG Q8 02/07 1400 DC 02/09 IV 0648 Metoprolol Tartrate 50 MG BID 02/08 1258 AC 02/10 PO 0826 Last 24 Hrs of Lab/Chan Results Last 24 Hrs of Labs/Mics: Laboratory Tests 02/10/18 0845: Anion Gap 11, Estimated GFR > 60, BUN/Creatinine Ratio 31.1 H, Magnesium 2.0, CBC w Diff NO MAN DIFF REQ, RBC 4.70, MCV 97.1 H, MCH 32.9 H, MCHC 33.9, RDW 13.4, MPV 9.9, Gran % 92.1 H, Lymphocytes % 4.6 L, Monocytes % 3.2, Eosinophils % 0, Basophils % 0.1, Absolute Granulocytes 17.9 H, Absolute Lymphocytes 0.9 L, Absolute Monocytes 0.6, Absolute Eosinophils 0, Absolute Basophils 0 Microbiology 02/09 2015 BLOOD: Blood Culture - RES 02/09 185 BLOOD: Blood Culture - RES Assessment/Plan Assessment: This is a 62-year-old gentleman of [place] descent with PMH of, COPD, hypertension, nonischemic cardiomyopathy with systolic heart failure, and atrial fibrillation on Eliquis for anticoagulation and beta blockers/non- dihydropyridine calcium channel antagonist therapy for rate control who presented to the ED on 02/07/2018 complaining of shortness of breath and chest discomfort. #Atrial fibrillation with RVR. #Chest pain- ruled out ACS. #Significant dyspnea likely related to COPD exacerbation-improving #History of hypertension. #Former nicotine dependence. #Electrolyte abnormalities. Plan: -Monitor on telemetry. 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 -Dose of cardizem was increased to 240 daily. -Continue Eliquis for anti-coagulation. -Routinely monitor electrolytes and maintain magnesium level and minimal 2.0. Potassium 4.0. -Cardiology did not recommend a repeat echo -Shortness of breath improving, continue with IV steroids and azithromycin -BCs negative todate. -Worsening of leukocytosis, CXR ordered; Pulm evaluation -If febrile may consider empirically covering for community-acquired pneumonia. -LRC, strep pneumo, Legionella urinary antigens to be followed. -Incentive Spirometer -Heart healthy -DVT prophylaxis Eliquis. -Patient is a full code. Problem List: 1. Bronchitis 2. Leukocytosis, unspecified 3. ATRIAL FIBRILATION Pain Ratin Pain Location: NA Pain Goal: Remain pain free Pain Plan: NA Tomorrow's Labs & Rationales: CBC to monitor H&H BEP and magnesium to monitor electrolytes
--- NOTE | 2018-02-10 08:26 | Patient Discharge Instructions ---
Discharge Instructions General Discharge Information You were seen/treated for: Bronchitis Atrial fibrillation with rapid rate Special Instructions: -Please follow-up with your PCP, Dr. Carrasco within a week of discharge. -Please follow-up with your embedded systems developer, Dr. Harding within a week of discharge. -Please make an appointment to see truck driver rubbish collector, Dr. Geiger within a week of discharge. You will need pulmonary function test. -Please have CBC checked in one week. -Please take your medications as instructed. Diet Continue normal diet: Yes Activity Additional ACTIVITY Info: As tolerated Acute Coronary Syndrome Inclusion Criteria At DC or during hospital stay patient has or had the following: Discharge Core Measures Meds if any: Prescribed or Continued at Discharge Meds if any: NOT Prescribed or Continued at Discharge Congestive Heart Failure Inclusion Criteria At DC or during hospital stay patient has or had the following: Discharge Core Measures Meds if any: Prescribed or Continued at Discharge Meds if any: NOT Prescribed or Continued at Discharge Cerebrovascular accident Inclusion Criteria At DC or during hospital stay patient has or had the following: CVA/TIA Diagnosis No Discharge Core Measures Meds if any: Prescribed or Continued at Discharge Meds if any: NOT Prescribed or Continued at Discharge Venous thromboembolism Discharge Core Measures - Per Current guidelines, there needs to be overlap - treatment for the first 5 days of Warfarin therapy. - If discharged on Warfarin prior to 5 days of - overlap therapy, the patient will need to be - assessed for post discharge needs including - *Post discharge parental anticoagulation - *Warfarin and/or parental anticoagulation education - *Follow up date to check INR post discharge Meds if any: Prescribed or Continued at Discharge Note: Overlap Therapy is Warfarin and Anticoagulant Meds if any: NOT Prescribed or Continued at Discharge
[2018-02-10 09:45] LABS: ABSOLUTE BASOPHIL COUNT 0 /CUMM (0.0-0.2); ABSOLUTE EOSINOPHIL COUNT 0 /CUMM (0.0-0.7); ABSOLUTE GRANULOCYTE CT 17.9 /CUMM (1.4-6.5); ABSOLUTE LYMPH COUNT 0.9 /CUMM (1.2-3.4); ABSOLUTE MONOCYTE COUNT 0.6 /CUMM (0.10-0.60); BASOPHIL % 0.1 % (0.0-2.0); EOSINOPHIL % 0 % (0-5); HEMATOCRIT 45.6 % (42-52); MEAN CORPUSCULAR HGB 32.9 PG (27.0-31.0); MEAN CORPUSCULAR HGB CONC 33.9 G/DL (33.0-37.0); MEAN CORPUSCULAR VOLUME 97.1 FL (80.0-94.0); MEAN PLATELET VOLUME 9.9 FL (7.4-10.4); PLATELET COUNT 254 /CUMM (130-400); RBC DISTRIBUTION WIDTH 13.4 % (11.5-14.5); WHITE BLOOD CELL COUNT 19.5 /CUMM (4.8-10.8)
[2018-02-10 10:52] LABS: GRANULOCYTE % 92.1 % (42.2-75.2)
--- NOTE | 2018-02-10 11:15 | PN- Att Addend ---
Attending Addendum Attending Brief Note Patient sitting in the chair, offers no new complaints. Daughter at the bedside translating Vital signs are stable, no fever pulse rate is reasonable. No major changes on physical. Ready to start disposition plans and have him follow with his COPD clinic and pulmonary but his white count is even higher today and cannot blame it all to the use of steroids need to rule out an acute infection, x-rays were ordered and also will have pulmonary check the patient before starting disposition plans Intake & Output 02/10 1600 02/10 0400 02/09 1600 02/09 0400 02/08 1600 02/08 0400 Intake Total 381 302 2059 600 800 400 Output Total Balance 359 081 1575 600 800 400 Intake, IV 250 Intake, Oral 336 187 9192 600 800 400 Patient 153 lb 247 lb 154 lb Weight Weight Bed scale Measurement Method Current Medications Sig/Marixa Start time Last Medication Dose Route Stop Time Status Admin Albuterol Sulfate 3 ML Q4P PRN 02/07 1900 AC INH Apixaban 5 MG BID 02/07 09 AC 02/10 PO 0826 Azithromycin 500 MG DAILY 02/07 0900 AC 02/10 Dextrose/Water 250 ML IV 0826 Diltiazem HCl 240 MG DAILY 02/10 0900 AC 02/10 PO 0826 Diltiazem HCl 180 MG DAILY 02/08 0900 DC 02/09 PO 0818 Methylprednisolone 40 MG DAILY 02/10 0900 AC 02/10 IV 0832 Methylprednisolone 40 MG BID 02/09 2100 DC 02/09 IV 2048 Methylprednisolone 40 MG Q8 02/07 1400 DC 02/09 IV 0648 Metoprolol Tartrate 50 MG BID 02/08 1258 AC 02/10 PO 0826 Laboratory Tests 02/10/18 0845: Anion Gap 11, Estimated GFR > 60, BUN/Creatinine Ratio 31.1 H, Magnesium 2.0, CBC w Diff NO MAN DIFF REQ, RBC 4.70, MCV 97.1 H, MCH 32.9 H, MCHC 33.9, RDW 13.4, MPV 9.9, Gran % 92.1 H, Lymphocytes % 4.6 L, Monocytes % 3.2, Eosinophils % 0, Basophils % 0.1, Absolute Granulocytes 17.9 H, Absolute Lymphocytes 0.9 L, Absolute Monocytes 0.6, Absolute Eosinophils 0, Absolute Basophils 0 02/09/18 0619: Anion Gap 15, Estimated GFR > 60, BUN/Creatinine Ratio 27.5 H, Magnesium 1.8, CBC w Diff NO MAN DIFF REQ, RBC 4.77, MCV 97.1 H, MCH 32.7 H, MCHC 33.7, RDW 13.7, MPV 10.3, Gran % 94.4 H, Lymphocytes % 2.8 L, Monocytes % 2.5, Eosinophils % 0, Basophils % 0.3, Absolute Granulocytes 21.1 H, Absolute Lymphocytes 0.6 L, Absolute Monocytes 0.6, Absolute Eosinophils 0, Absolute Basophils 0.1 02/08/18 0630: Anion Gap 12, Estimated GFR > 60, BUN/Creatinine Ratio 20.0, Magnesium 1.9, CBC w Diff NO MAN DIFF REQ, RBC 4.52 L, MCV 96.7 H, MCH 32.4 H, MCHC 33.5, RDW 13.7, MPV 10.0, Gran % 92.2 H, Lymphocytes % 4.1 L, Monocytes % 3.6, Eosinophils % 0, Basophils % 0.1, Absolute Granulocytes 16.4 H, Absolute Lymphocytes 0.7 L, Absolute Monocytes 0.6, Absolute Eosinophils 0, Absolute Basophils 0 02/07/18 1745: Troponin I < 0.01 02/07/18 1123: Troponin I < 0.01 Microbiology 02/09 2015 BLOOD: Blood Culture - RECD 02/09 185 BLOOD: Blood Culture - RECD 02/07 1512 NASOPHARYN: Influenza Virus A & B Rapid Smear - COMP Microbiology 02/09 2015 BLOOD: Blood Culture - RECD 02/09 1854 BLOOD: Blood Culture - RECD 02/07 151 NASOPHARYN: Influenza Virus A & B Rapid Smear - COMP Vital Signs Date Time Temp Pulse Resp B/P B/P Pulse O2 O2 Flow FiO2 Mean Ox Delivery Rate 02/10 0857 97 Room Air 02/10 0826 6 140/80 02/10 0717 97.8 60 20 140/80 96 Room Air 02/10 0000 Room Air 02/09 2244 98.8 113 18 138/88 97 Room Air 02/09 2052 106 138/88 02/09 1935 97 Room Air 02/09 1506 98.8 78 18 132/70 96 Room Air 02/09 1210 95 Room Air
--- NOTE | 2018-02-10 13:31 | Cons- Pulmonary ---
General Information and HPI Consulting Request Date of Consult: 02/10/18 Requested By: Mayo Reason for Consult: COPD leukocytosis History of Present Illness: Patient is a poor historian 62 years old history of cardiomyopathy reported COPD without pulmonary function testing former smoker admitted with chest pain shortness of breath found to be in atrial fibrillation with rapid ventricular response. He had evidence of wheezing on admission was started on intravenous steroids and Zithromax. Chest x-ray was initially negative. Patient is clinically improved denies shortness breath is on room air with normal oxygen saturations. Concern is raised over rising white count and possible pulmonary source. Repeat chest x-ray is normal except for mild hyperinflation and denies cough or sputum production Allergies/Medications Allergies: Coded Allergies: NO KNOWN ALLERGIES (11/25/11) Home Med List: Apixaban (Eliquis) 5 MG TABLET 1 TAB PO BID AFIB (Reported) Azithromycin 500 MG TABLET 500 MG PO DAILY bronchitis . Benzonatate 100 MG CAPSULE 1 CAP PO TID PRN COUGH (Reported) Diltiazem HCl (Diltiazem 24HR ER) 180 MG CAP.ER.24H 1 CAP PO DAILY HTN ( Reported) Lisinopril 2.5 MG TABLET 1 TAB PO DAILY HTN (Reported) Metoprolol Tartrate (Lopressor) 50 MG TABLET 1 TAB PO BID HTN (Reported) Review of Systems Review of Systems Constitutional: Denies: chills, fever. Cardiovascular: Denies: chest pain, edema. Respiratory: Denies: cough, hemoptysis, short of breath, sputum production. GI: Denies: abdominal pain, diarrhea, melena. 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 Home Services at Home: None Smoking Status: Former Smoker ETOH Use: occasional use Functional Ability ADLs Independent: dressing, eating, toileting, bathing. Ambulation: independent IADLs Independent: shopping, housework, finances, food prep, telephone, transportation , medication admin. Exam & Diagnostic Data Last 24 Hrs of Vital Signs/I&O Vital Signs Date Time Temp Pulse Resp B/P B/P Pulse O2 O2 Flow FiO2 Mean Ox Delivery Rate 02/10 0857 97 Room Air 02/10 0826 6 140/80 02/10 0717 97.8 60 20 140/80 96 Room Air 02/10 0000 Room Air 02/09 2244 98.8 113 18 138/88 97 Room Air 02/09 2052 106 138/88 02/09 1935 97 Room Air 02/09 1506 98.8 78 18 132/70 96 Room Air Intake & Output 02/10 1600 02/10 0800 02/10 0000 Intake Total 120 120 Output Total Balance 120 120 Intake, Oral 120 120 Patient 153 lb Weight Patient is afebrile ve) 9798% HEENT exam shows no adenopathy exam of his chest shows clear lung ruiz are no wheezes cardiac exam shows a regular rhythm abdomen is soft nontender Last 48 Hrs of Labs/Chan: Laboratory Tests 02/10/18 0845: Anion Gap 11, Estimated GFR > 60, BUN/Creatinine Ratio 31.1 H, Magnesium 2.0, CBC w Diff NO MAN DIFF REQ, RBC 4.70, MCV 97.1 H, MCH 32.9 H, MCHC 33.9, RDW 13.4, MPV 9.9, Gran % 92.1 H, Lymphocytes % 4.6 L, Monocytes % 3.2, Eosinophils % 0, Basophils % 0.1, Absolute Granulocytes 17.9 H, Absolute Lymphocytes 0.9 L, Absolute Monocytes 0.6, Absolute Eosinophils 0, Absolute Basophils 0 02/09/18 0619: Anion Gap 15, Estimated GFR > 60, BUN/Creatinine Ratio 27.5 H, Magnesium 1.8, CBC w Diff NO MAN DIFF REQ, RBC 4.77, MCV 97.1 H, MCH 32.7 H, MCHC 33.7, RDW 13.7, MPV 10.3, Gran % 94.4 H, Lymphocytes % 2.8 L, Monocytes % 2.5, Eosinophils % 0, Basophils % 0.3, Absolute Granulocytes 21.1 H, Absolute Lymphocytes 0.6 L, Absolute Monocytes 0.6, Absolute Eosinophils 0, Absolute Basophils 0.1 Assessment/Plan Impression/Plan: 62-year-old who carries diagnosis of COPD atrial fibrillation on a course was admitted with chest pain shortness breath found to be atrial fibrillation rapid ventricular response. Started on steroids for bronchospasm which has resolved. White count has risen without evidence for pulmonary infection. Recommendations: DC Solu-Medrol and rapidly taper prednisone. There is no evidence for pneumonia on chest radiographs. If concern is raised over alternative sources for leukocytosis to be pursued by primary care team. I see no reason for antibiotics for pulmonary infection. Patient should have outpatient pulmonary function testing Consult Acknowledgment - Thank you for your consult request.
--- NOTE | 2018-02-10 14:18 | RADIOLOGY REPORT ---
EXAMINATION: XR PORTABLE CHEST CLINICAL INFORMATION: Worsening leukocytosis. Rule out any pathology, pneumonia. COMPARISON: Chest x-ray dated 02/07/2018. TECHNIQUE: Portable AP semierect view of the chest was obtained. FINDINGS: EKG leads overlie the chest. The cardiomediastinal silhouette is within normal limits in size. Lungs bilaterally are symmetrically hyperexpanded and clear. No focal consolidation, effusion or pneumothorax is seen. Bony structures are unremarkable. IMPRESSION: Findings consistent with obstructive lung disease. No focal acute process seen.
[2018-02-10 14:51] VITALS: BP 130/86
[2018-02-10] MEDS ORDERED: CARDIZEM CD240 M1 PO (16:15)
[2018-02-10] MEDS ORDERED: PREDNISONE10 M2 PO ×2 (16:46→18:21)
--- NOTE | 2018-02-10 17:05 | Event Note ---
Event Note Event Note: Pulmonary recommendations appreciated. Chest x-ray does not reveal any acute pathology. Patient and his daughter who is at bedside would prefer to go home if it's okay by Dr. Harding. Discussed with Dr. Harding over the phone, if patient's ambulatory pulse rate is acceptable he can be discharged on current medication regimen. Patient was ambulated, walked through the hallway few times, his heart rate in the 110s maximum. Discussed with Dr. Harding who suggested this heart rate is acceptable for discharge. The patient has to follow-up in one week with Dr. Harding. Discussed with Dr. Carrasco. Will discharge the patient on steroid taper, azithromycin for 1 day to complete five-day course, diltiazem 240 daily. He was instructed to repeat CBC in 1 week, prescription provided. Also referred the patient to pulmonary for PFTs. Advised to come back to the hospital if he develops chest pain, worsening of dyspnea or any recurring symptoms. Plan was discussed with patient and his daughter and were present at bedside. They expressed understanding and were agreeable. Called in pharmacy for the steroid taper.
[2018-02-10] MEDS ORDERED: AZITHROMYCIN500 M3 PO (17:07)
== END 2018-02-10 18:45 | DRG 191 ==
LOC: ERH 04:40 → ERHI 06:29 → ENRESERV 13:44 → CANRESERV 13:44 → ENTRNSPT 15:32 → EDTRNSPTSTS 15:35 → EDTRNSPT 15:35 → 1NO 15:53 → CMPTRNSPT 16:10 → ENPENDDIS 02-10 17:21 → 1NO 02-10 18:45
PROVIDERS: Emergency Medicine; Internal Medicine; Student in an Organized Health Care Education/Training Program
DX: J44.1 Chronic obstructive pulmonary disease with (acute) exacerbation (principal); I42.9 Cardiomyopathy, unspecified; I11.0 Hypertensive heart disease with heart failure; I50.22 Chronic systolic (congestive) heart failure; I48.91 Unspecified atrial fibrillation; J98.01 Acute bronchospasm; D72.829 Elevated white blood cell count, unspecified; Z79.01 Long term (current) use of anticoagulants; Z87.891 Personal history of nicotine dependence
CPT/HCPCS: 1NSP; 36415; 36592; 71045; 71046; 82436; 87040; 87070; 87449; 87450; 87804; 87804-59; 93005; 93010; 96374; 96375; 96376; J0131; J0456; J0696; J2920; J2930; J3490; J7060